=== PATIENT | female | born 1990 | race Caucasian/White ===

== ENCOUNTER 2018-08-28 22:44 | Emergency (ER) | payer MEDICAID ==
[~2018-08-28] VITALS: Ht 167.6 cm; Wt 100.0 kg
[2018-08-28 22:47] VITALS: BP 131/78
--- NOTE | 2018-08-28 22:57 | NUR ---
No approproate RAP specific asssessment- pt reports intermittent numbness to hands over the last "couple of moths." she reports numbness is from wrist to fingers. circulation is intact and she is able to use fingers with fine motor
--- NOTE | 2018-08-28 22:58 | NUR ---
Pt resting quietly in position of comfort using both hands/fingers on cell phone.
== END 2018-08-28 23:24 | disposition home or self-care (01) ==
LOC: ER 22:46
DX: R20.0 Anesthesia of skin (principal); J45.909 Unspecified asthma, uncomplicated; F17.200 Nicotine dependence, unspecified, uncomplicated; Z88.5 Allergy status to narcotic agent
CPT/HCPCS: 99281

== ENCOUNTER 2019-03-11 20:29 | Emergency (ER) | payer MEDICAID ==
[~2019-03-11] VITALS: Ht 167.6 cm; Wt 100.0 kg
[2019-03-11] MEDS ORDERED: ketorolac trometh inj. 60 MG/2 ML VIAL IM ONE (21:50)
[2019-03-11] MEDS ORDERED: orphenadrine citrate 60mg/2ml inj. IM ONE (21:50)
[2019-03-11] MEDS ORDERED: NAPR-56 PO (21:51)
[2019-03-11] MEDS ORDERED: CYCL-1 PO (21:51)
[2019-03-11 22:10] VITALS: BP 120/67
== END 2019-03-11 22:13 | disposition home or self-care (01) ==
LOC: ER 20:31
DX: M54.5 Low back pain (principal); G89.29 Other chronic pain; M62.830 Muscle spasm of back; J45.909 Unspecified asthma, uncomplicated; Z98.890 Other specified postprocedural states; Z88.5 Allergy status to narcotic agent
CPT/HCPCS: 96372; 99283; J1885; J2360

== ENCOUNTER 2019-06-14 23:23 | Emergency (ER) | payer MEDICAID ==
[~2019-06-14] VITALS: Ht 167.6 cm; Wt 109.1 kg
[~2019-06-14 23:23] MED LIST: CYCL-1 PO
[2019-06-14 23:28] VITALS: BP 126/85
[2019-06-14] MEDS ORDERED: TETanus/Pertussis (Acell)/Diphther VAC/PF (Tdap-Adult) 0.5ml syringe IM ONE (23:50)
== END 2019-06-15 00:17 | disposition home or self-care (01) ==
LOC: ER 23:24
DX: S81.812A Laceration without foreign body, left lower leg, initial encounter (principal); J45.909 Unspecified asthma, uncomplicated; F10.99 Alcohol use, unspecified with unspecified alcohol-induced disorder; Z88.5 Allergy status to narcotic agent; Z79.899 Other long term (current) drug therapy; Z98.890 Other specified postprocedural states; W22.8XXA Striking against or struck by other objects, initial encounter; Y93.89 Activity, other specified; Y92.89 Other specified places as the place of occurrence of the external cause; Y99.8 Other external cause status; Y90.9 Presence of alcohol in blood, level not specified
CPT/HCPCS: 90471; 99283

== ENCOUNTER 2020-02-29 02:43 | Inpatient (IN) | payer MEDICAID ==
[~2020-02-29] VITALS: Ht 167.6 cm; Wt 111.0 kg
[2020-02-29] MEDS ORDERED: morphine 4 MG/ML inj SYRINge IV PRN (03:20)
[2020-02-29] MEDS ORDERED: normal saline 1000ML IV soln IVB ONE (03:20)
[2020-02-29] MEDS ORDERED: ondansetron/PF 4mg/2ml inj IV ONE ×2 (03:20→05:00)
[2020-02-29 03:53] LABS: ALANINE AMINOTRANSFERASE 22 U/L (12-78); ALBUMIN 3.6 G/DL (3.4-5.0); ALKALINE PHOSPHATASE 79 IU/L (46-116); ANION GAP 8 (8-16); ASPARTATE AMINO TRANSFERASE 17 U/L (10-37); BILIRUBIN,TOTAL 0.2 MG/DL (0.1-1.0); BLOOD UREA NITROGEN 12 MG/DL (7-18); BUN/CREATININE RATIO 12.9 (6.6-38.0); CHLORIDE 108 MMOL/L (99-107); CREATININE 0.93 MG/DL (0.40-0.90); GLUCOSE 125 MG/DL (70-104); LIPASE 99 U/L (73-393); POTASSIUM 3.7 MMOL/L (3.5-5.1); SODIUM 142 MMOL/L (135-145); TOTAL CARBON DIOXIDE 25.8 MMOL/L (24-32); TOTAL PROTEIN 7.3 G/DL (6.4-8.2); eGFR 72 ML/MIN
[2020-02-29 04:24] LABS: URINE HCG NEGATIVE (NEG)
[2020-02-29 04:40] LABS: CLARITY,URINE SLIGHTLY CLOUDY (Clear); COLOR,URINE YELLOW (Yellow); GLUCOSE, URINE NEGATIVE (Neg); KETONES,URINE NEGATIVE (Neg); LEUKOCYTE ESTERASE ,URINE NEGATIVE (Neg); NITRITES, URINE NEGATIVE (Neg); OCCULT BLOOD,URINE MODERATE (Neg); PH,URINE 6.5 (4.8-8.0); PROTEIN,URINE NEGATIVE (Neg); UROBILINOGEN,URINE 0.2 E.U/dL (0.2-1.0)
[2020-02-29 04:42] LABS: UA COLLECTION TYPE CLN CATCH MIDSTREAM
[2020-02-29 04:48] LABS: MUCUS STRANDS MANY /LPF (Neg); SQUAMOUS EPITHELIAL CELL,UR MANY /LPF (FEW)
[2020-02-29 04:49] LABS: WBC,URINE 0-4 /HPF (0-4)
[2020-02-29 04:51] LABS: AMORPHOUS URATES 3+; BACTERIA,URINE 2+ /HPF (Neg)
[2020-02-29] MEDS ORDERED: diazepam inj 5 MG/ML inj. IV ONE (05:00)
[2020-02-29] MEDS ORDERED: fentaNYL/PF 50MCG/1 ML 2ML syringe IV ONE (05:00)
[2020-02-29] MEDS ORDERED: NO HOME MEDS (05:06)
[2020-02-29] MEDS ORDERED: acetaminophen 325mg tablet PO PRN (05:10)
[2020-02-29] MEDS ORDERED: magnesium Cl slow-release 64mg tablet PO PRN (05:10)
[2020-02-29] MEDS ORDERED: potassium CL 10mEq/100ml bag 100 ML IV PRN ×2 (05:10)
[2020-02-29] MEDS ORDERED: magnesium 4gm in 100ml NS 100 ML IV PRN (05:10)
[2020-02-29] MEDS ORDERED: potassium Cl 20 mEq SR tablet PO PRN ×2 (05:10)
[2020-02-29] MEDS ORDERED: mag hydrox/Alum hydrox/simeth 30ml oral suspension PO PRN (05:10)
[2020-02-29] MEDS ORDERED: diazepam inj 5 MG/ML inj. IV PRN (05:10)
[2020-02-29] MEDS ORDERED: proCHLORperazine 10 MG/2 ml inj IV PRN (05:10)
[2020-02-29] MEDS ORDERED: magnesium hydroxide 30ml (MOM) UD suspension PO PRN (05:10)
[2020-02-29] MEDS ORDERED: magnesium 2GM in 50ml NS 50 ML IV PRN (05:10)
[2020-02-29] MEDS ORDERED: ondansetron/PF 4mg/2ml inj IV PRN (05:10)
--- NOTE | 2020-02-29 05:26 | NUR ---
2ND CALL FOR DR. AVERY AT 05:25
--- NOTE | 2020-02-29 05:49 | NUR ---
3RD CALL FOR DR. AVERY AT 05:45
[2020-02-29 06:26] LABS: BASOPHILS % (AUTO) 0.3 % (0-1); EOSINOPHILS % (AUTO) 0.1 % (0-6); HEMATOCRIT 37.3 % (35.0-45.0); HEMOGLOBIN 12.6 g/dl (12.0-16.0); LYMPHOCYTES % (AUTO) 7.8 % (21-51); MEAN CORPUSCULAR HEMOGLOBIN 30.1 PG (27.0-31.0); MEAN CORPUSCULAR HGB CONC 33.9 g/dL (33.0-36.5); MEAN CORPUSCULAR VOLUME 88.7 FL (78-98); MEAN PLATELET VOLUME 8.5 FL (7.4-10.4); MONOCYTES # (AUTO) 0.4 X10'3 (0-0.9); MONOCYTES % (AUTO) 3.2 % (2-12); NEUTROPHILS # (AUTO) 11.4 X10'3 (1.8-7.7); NEUTROPHILS % (AUTO) 88.6 % (42-75); PLATELET COUNT 241 X10'3 (140-440); RED CELL DISTRIBUTION WIDTH 12.8 % (11.5-14.5); WHITE BLOOD COUNT 12.8 X10'3 (4.5-11.0)
--- NOTE | 2020-02-29 06:48 | NUR ---
Patient in room ED 4. I have received report from Leanna and had the opportunity to ask questions and assume patient care.
--- NOTE | 2020-02-29 06:58 | NUR ---
Pt arrived on the floor, tucked in, pt vomiting
[2020-02-29] MEDS: normal saline 1000ml 1,000 ML IV SCH ×2 (07:05→17:26)
[2020-02-29 07:10] VITALS: BP 128/87
[2020-02-29] MEDS: K and/or MAG REPLACEMENT MC SCH ×2 (08:00→20:00)
[2020-02-29 10:00] VITALS: BP 101/68
[2020-02-29] MEDS: HYDROmorphone 1 mg/ml syringe IV PRN ×3 (10:08→20:04)
[2020-02-29] MEDS ORDERED: tamsulosin 0.4mg capsule PO ONE (14:00)
--- NOTE | 2020-02-29 15:39 | NUR ---
Patient S/O called requesting to talk with her so he could get the ETB card from her, to feed the kids. I woke patient, and asked his name "Vish" and she then gave me the ETB card to run downstairs to him. I went downstairs, and he was on the blanking machine operator phone talking with her, I asked his name and he stated "Vish".
[2020-02-29 18:00] VITALS: BP 95/56
--- NOTE | 2020-02-29 18:00 | NUR ---
Patient in room ORTHO 4022. I have received report from Michelle JOHNSON and had the opportunity to ask questions and assume patient care.
--- NOTE | 2020-02-29 18:26 | NUR ---
Problems reprioritized. Patient report given, questions answered & plan of care reviewed with
[2020-02-29] MEDS: tamsulosin 0.4mg capsule PO SCH (20:04)
[2020-02-29 22:00] VITALS: BP 98/57
[2020-03-01] VITALS (15 sets, daily range): BP systolic 98–150; BP diastolic 57–86
[2020-03-01] MEDS: normal saline 1000ml 1,000 ML IV SCH ×3 (02:20→22:20)
[2020-03-01] MEDS: HYDROmorphone 1 mg/ml syringe IV PRN ×3 (03:49→18:57)
[2020-03-01 06:34] LABS: ALANINE AMINOTRANSFERASE 19 U/L (12-78); ALBUMIN 2.8 G/DL (3.4-5.0); ALBUMIN/GLOBULIN RATIO 0.9 (1.1-1.5); ALKALINE PHOSPHATASE 66 IU/L (46-116); ANION GAP 8 (8-16); ASPARTATE AMINO TRANSFERASE 12 U/L (10-37); BILIRUBIN,TOTAL 0.4 MG/DL (0.1-1.0); BLOOD UREA NITROGEN 8 MG/DL (7-18); BUN/CREATININE RATIO 10.8 (6.6-38.0); CALCIUM 8.2 MG/DL (8.5-10.1); CHLORIDE 109 MMOL/L (99-107); CREATININE 0.74 MG/DL (0.40-0.90); GLUCOSE 96 MG/DL (70-104); MAGNESIUM 1.9 MG/DL (1.5-2.4); POTASSIUM 3.7 MMOL/L (3.5-5.1); SODIUM 142 MMOL/L (135-145); TOTAL CARBON DIOXIDE 25.3 MMOL/L (24-32); eGFR > 90 ML/MIN
[2020-03-01 06:45] LABS: BASOPHILS % (AUTO) 0.3 % (0-1); EOSINOPHILS # (AUTO) 0.1 X10'3 (0-0.9); EOSINOPHILS % (AUTO) 1.9 % (0-6); HEMATOCRIT 37.8 % (35.0-45.0); HEMOGLOBIN 12.6 g/dl (12.0-16.0); LYMPHOCYTES # (AUTO) 2.6 X10'3 (1.1-4.8); LYMPHOCYTES % (AUTO) 32.2 % (21-51); MEAN CORPUSCULAR HEMOGLOBIN 29.8 PG (27.0-31.0); MEAN CORPUSCULAR HGB CONC 33.3 g/dL (33.0-36.5); MEAN CORPUSCULAR VOLUME 89.4 FL (78-98); MEAN PLATELET VOLUME 8.8 FL (7.4-10.4); MONOCYTES # (AUTO) 0.5 X10'3 (0-0.9); MONOCYTES % (AUTO) 6.1 % (2-12); NEUTROPHILS # (AUTO) 4.7 X10'3 (1.8-7.7); NEUTROPHILS % (AUTO) 59.5 % (42-75); PLATELET COUNT 232 X10'3 (140-440); RED BLOOD COUNT 4.23 X10'6 (4.20-5.60)
--- NOTE | 2020-03-01 06:47 | NUR ---
Patient in room ORTHO 4022B. I have received report from ALEX Hansen and had the opportunity to ask questions and assume patient care.
[2020-03-01] MEDS: K and/or MAG REPLACEMENT MC SCH ×2 (07:40→19:03)
[2020-03-01] MEDS ORDERED: HYDR-4383 PO (09:51)
--- NOTE | 2020-03-01 10:09 | NUR ---
Page Sent PAGER ID: [phone] MESSAGE: [place] 5430-RE: MARLYS COCHRAN [id number]...DR AVERY IS TAKING PT TO SURGERY THIS AFTERNOON
[2020-03-01] MEDS: HYDROcodone/acetaminophen 5mg/325mg tablet PO PRN ×2 (11:06→23:10)
--- NOTE | 2020-03-01 18:11 | NUR ---
Problems reprioritized. Patient report given, questions answered & plan of care reviewed with ALEX Brown.
[2020-03-01] MEDS ORDERED: iohexol 300 MG/1 ML 50ml polymer ONE (19:43)
--- NOTE | 2020-03-01 20:10 | NUR ---
CALLED REPORT TO ALEX RANDOLPH IN OR. PT LEFT THE FLOOR VIA HOSPITAL BED AND ONE ATTENDANT.
[2020-03-01] MEDS ORDERED: ringers solution, lacted 1,000 ML IV SCH (20:42)
[2020-03-01] MEDS ORDERED: meperidine/PF 25mg/ml syringe IV PRN ×2 (20:45)
[2020-03-01] MEDS ORDERED: ondansetron/PF 4mg/2ml inj IV PRN (20:45)
[2020-03-01] MEDS ORDERED: HYDROmorphone inj. 0.5 MG/0.5 ML DISP.SYRIN IV PRN ×2 (20:45)
[2020-03-01] MEDS ORDERED: sevoflurane 250ml liquid IH ONE (20:48)
[2020-03-01] MEDS ORDERED: midazolam 2 mg/2 ml injection ONE (20:51)
[2020-03-01] MEDS ORDERED: fentaNYL/PF 50MCG/1 ML 2ML syringe ONE (20:51)
[2020-03-01] MEDS ORDERED: propofol inj 20 ML IV ONE (20:51)
[2020-03-01] MEDS ORDERED: ceFAZolin 1000mg inj ONE ×2 (20:51)
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
[2020-03-01] MEDS: tamsulosin 0.4mg capsule PO SCH (23:03)
[2020-03-02 00:25] VITALS: BP 102/80
[2020-03-02 00:55] VITALS: BP 114/78
[2020-03-02 01:55] VITALS: BP 123/70
[2020-03-02 02:21] VITALS: BP 119/83
[2020-03-02] MEDS: HYDROmorphone 1 mg/ml syringe IV PRN (05:37)
--- NOTE | 2020-03-02 05:56 | NUR ---
REPORT GIVEN TO ALEX COLEMAN.
[2020-03-02 06:00] VITALS: BP 106/62
--- NOTE | 2020-03-02 06:43 | NUR ---
Patient in room ORTHO 4022A. I have received report from ALEX Brown and had the opportunity to ask questions and assume patient care.
[2020-03-02 07:22] LABS: BASOPHILS % (AUTO) 0.6 % (0-1); EOSINOPHILS # (AUTO) 0.2 X10'3 (0-0.9); EOSINOPHILS % (AUTO) 2.5 % (0-6); HEMATOCRIT 37.6 % (35.0-45.0); HEMOGLOBIN 12.6 g/dl (12.0-16.0); LYMPHOCYTES # (AUTO) 2.6 X10'3 (1.1-4.8); MEAN CORPUSCULAR HEMOGLOBIN 29.7 PG (27.0-31.0); MEAN CORPUSCULAR HGB CONC 33.4 g/dL (33.0-36.5); MEAN PLATELET VOLUME 9.6 FL (7.4-10.4); MONOCYTES # (AUTO) 0.5 X10'3 (0-0.9); MONOCYTES % (AUTO) 6.3 % (2-12); NEUTROPHILS # (AUTO) 4.5 X10'3 (1.8-7.7); NEUTROPHILS % (AUTO) 57.6 % (42-75); PLATELET COUNT 234 X10'3 (140-440); RED BLOOD COUNT 4.23 X10'6 (4.20-5.60); RED CELL DISTRIBUTION WIDTH 12.8 % (11.5-14.5); WHITE BLOOD COUNT 7.8 X10'3 (4.5-11.0)
[2020-03-02 07:36] LABS: ALANINE AMINOTRANSFERASE 16 U/L (12-78); ALBUMIN 2.8 G/DL (3.4-5.0); ALBUMIN/GLOBULIN RATIO 0.8 (1.1-1.5); ALKALINE PHOSPHATASE 68 IU/L (46-116); ANION GAP 7 (8-16); ASPARTATE AMINO TRANSFERASE 18 U/L (10-37); BILIRUBIN,TOTAL 0.2 MG/DL (0.1-1.0); BLOOD UREA NITROGEN 7 MG/DL (7-18); CALCIUM 8.2 MG/DL (8.5-10.1); CHLORIDE 108 MMOL/L (99-107); CREATININE 0.78 MG/DL (0.40-0.90); GLUCOSE 88 MG/DL (70-104); MAGNESIUM 1.7 MG/DL (1.5-2.4); POTASSIUM 3.7 MMOL/L (3.5-5.1); SODIUM 142 MMOL/L (135-145); TOTAL CARBON DIOXIDE 26.6 MMOL/L (24-32); TOTAL PROTEIN 6.1 G/DL (6.4-8.2); eGFR 88 ML/MIN
[2020-03-02] MEDS: K and/or MAG REPLACEMENT MC SCH (08:00)
[2020-03-02] MEDS: normal saline 1000ml 1,000 ML IV SCH (08:20)
[2020-03-02] MEDS: HYDROcodone/acetaminophen 5mg/325mg tablet PO PRN (09:43)
[2020-03-02] MEDS ORDERED: SULF1TAB49 PO (10:27)
--- NOTE | 2020-03-02 11:18 | NUR ---
DC INSTRUCTIONS, RX, AND WORK RELEASE NOTE GIVEN TO PT. IV REMOVED WITH NO COMPLICATIONS. PT DRESSED SELF. WHEELED DOWN TO FAMILY IN PRIVATE VEHICLE IN STABLE CONDITION.
== END 2020-03-02 10:55 | disposition home or self-care (01) | DRG 446 ==
LOC: ER 02:43 → UNDOADMIN 05:06 → ED HOLD 05:06 → ORTHO 4S 06:54 → ED HOLD 06:54 → PACU 03-01 19:57 → ORTHO 4S 03-01 19:57 → PACU 03-01 23:00 → ORTHO 4S 03-01 23:00
PROVIDERS: ADMIT Family Medicine; ATTEND Internal Medicine
PROC: 0T768DZ Dilation of Right Ureter with Intraluminal Device, Via Natural or Artificial Opening Endoscopic (ICD-10-PCS; 2020-03-01)
PROC: BT1D1ZZ Fluoroscopy of Right Kidney, Ureter and Bladder using Low Osmolar Contrast (ICD-10-PCS; 2020-03-01)
PROC: 0TC68ZZ Extirpation of Matter from Right Ureter, Via Natural or Artificial Opening Endoscopic (ICD-10-PCS; principal; 2020-03-01 20:48)
DX: N13.2 Hydronephrosis with renal and ureteral calculous obstruction (principal); E66.01 Morbid (severe) obesity due to excess calories; J45.909 Unspecified asthma, uncomplicated; Z98.891 History of uterine scar from previous surgery; Z68.39 Body mass index [BMI] 39.0-39.9, adult; Z88.5 Allergy status to narcotic agent
CPT/HCPCS: 36415; 74018; 74176; 74420; 80053; 81001; 81025; 82948; 83690; 83735; 85025; 87081; 99285; A4402; A4618; A7000; C1758; C1769; C2617; G0378; J0690; J0780; J1170; J2250; J2270; J2405; J2704; J3010; J3360; J7030; Q9967

== ENCOUNTER 2020-03-07 13:22 | Emergency (ER) | payer MEDICAID ==
[~2020-03-07] VITALS: Ht 167.6 cm; Wt 113.6 kg
[~2020-03-07 13:22] MED LIST changes: -CYCL-1 PO; +HYDR-4383 PO; +SULF1TAB49 PO
--- NOTE | 2020-03-07 13:55 | NUR ---
awaiting for ed .
[2020-03-07 14:23] LABS: CLARITY,URINE SLIGHTLY CLOUDY (Clear); COLOR,URINE AMBER (Yellow); GLUCOSE, URINE NEGATIVE (Neg); KETONES,URINE NEGATIVE (Neg); LEUKOCYTE ESTERASE ,URINE SMALL (Neg); NITRITES, URINE NEGATIVE (Neg); OCCULT BLOOD,URINE LARGE (Neg); PH,URINE 6.5 (4.8-8.0); PROTEIN,URINE >=300 mg/dl (Neg); UA COLLECTION TYPE CLN CATCH MIDSTREAM; URINE HCG NEGATIVE (NEG)
[2020-03-07 14:31] LABS: RBC,URINE TNTC /HPF (0-2); WBC,URINE 30-50 /HPF (0-4)
[2020-03-07 14:33] LABS: BACTERIA,URINE 2+ /HPF (Neg)
[2020-03-07 14:35] LABS: SQUAMOUS EPITHELIAL CELL,UR MANY /LPF (FEW)
[2020-03-07] MEDS ORDERED: ondansetron/PF 4mg/2ml inj IV ONE (14:40)
[2020-03-07] MEDS ORDERED: normal saline 1000ML IV soln IVB ONE (14:40)
[2020-03-07] MEDS ORDERED: ketorolac trometh. 30mg/ml inj. IV ONE (14:40)
[2020-03-07] MEDS ORDERED: fentaNYL/PF 50MCG/1 ML 2ML syringe IV ONE ×2 (14:45→15:30)
[2020-03-07 14:48] LABS: BASOPHILS # (AUTO) 0.1 X10'3 (0-0.2); BASOPHILS % (AUTO) 0.6 % (0-1); EOSINOPHILS # (AUTO) 0.2 X10'3 (0-0.9); EOSINOPHILS % (AUTO) 2.4 % (0-6); HEMATOCRIT 41.9 % (35.0-45.0); HEMOGLOBIN 14.1 g/dl (12.0-16.0); LYMPHOCYTES # (AUTO) 2.5 X10'3 (1.1-4.8); LYMPHOCYTES % (AUTO) 28.5 % (21-51); MEAN CORPUSCULAR HEMOGLOBIN 29.9 PG (27.0-31.0); MEAN CORPUSCULAR HGB CONC 33.7 g/dL (33.0-36.5); MEAN CORPUSCULAR VOLUME 88.8 FL (78-98); MEAN PLATELET VOLUME 9.1 FL (7.4-10.4); MONOCYTES # (AUTO) 0.6 X10'3 (0-0.9); MONOCYTES % (AUTO) 6.5 % (2-12); NEUTROPHILS # (AUTO) 5.4 X10'3 (1.8-7.7); PLATELET COUNT 315 X10'3 (140-440); RED BLOOD COUNT 4.72 X10'6 (4.20-5.60); RED CELL DISTRIBUTION WIDTH 13.1 % (11.5-14.5); WHITE BLOOD COUNT 8.7 X10'3 (4.5-11.0)
[2020-03-07 14:56] LABS: ALANINE AMINOTRANSFERASE 24 U/L (12-78); ALBUMIN 4.2 G/DL (3.4-5.0); ALBUMIN/GLOBULIN RATIO 1.1 (1.1-1.5); ALKALINE PHOSPHATASE 86 IU/L (46-116); ANION GAP 5 (8-16); ASPARTATE AMINO TRANSFERASE 16 U/L (10-37); BILIRUBIN,TOTAL 0.3 MG/DL (0.1-1.0); BLOOD UREA NITROGEN 11 MG/DL (7-18); BUN/CREATININE RATIO 12.5 (6.6-38.0); CALCIUM 9.4 MG/DL (8.5-10.1); CHLORIDE 107 MMOL/L (99-107); CREATININE 0.88 MG/DL (0.40-0.90); GLUCOSE 90 MG/DL (70-104); LIPASE 88 U/L (73-393); POTASSIUM 3.7 MMOL/L (3.5-5.1); SODIUM 139 MMOL/L (135-145); TOTAL CARBON DIOXIDE 27.2 MMOL/L (24-32); TOTAL PROTEIN 8.1 G/DL (6.4-8.2); eGFR 77 ML/MIN
[2020-03-07] MEDS ORDERED: CefTRIAXone/D5W-Rocephin 1gm 50 ML IV ONE (15:15)
--- NOTE | 2020-03-07 15:17 | NUR ---
ernestinahin unavailable at this time,called pharamacy,will take them 10 minutes to make it.
[2020-03-07 15:56] VITALS: BP 112/69
[2020-03-07] MEDS ORDERED: CEPH500C5 PO (16:17)
[2020-03-07] MEDS ORDERED: HYDR-4384 PO (16:17)
== END 2020-03-07 16:28 | disposition home or self-care (01) ==
LOC: ER 13:23
DX: R10.31 Right lower quadrant pain (principal); J45.909 Unspecified asthma, uncomplicated; F17.200 Nicotine dependence, unspecified, uncomplicated; Z87.442 Personal history of urinary calculi; Z98.890 Other specified postprocedural states; Z72.89 Other problems related to lifestyle; Z88.5 Allergy status to narcotic agent; Z79.2 Long term (current) use of antibiotics; Z79.899 Other long term (current) drug therapy
CPT/HCPCS: 36415; 80053; 81001; 81025; 83690; 85025; 96365; 96375; 96376; 99284; J0696; J1885; J2405; J3010; J7030

== ENCOUNTER 2020-04-04 17:44 | Emergency (ER) | payer MEDICAID ==
[~2020-04-04] VITALS: Ht 167.6 cm; Wt 111.8 kg
[~2020-04-04 17:44] MED LIST changes: -SULF1TAB49 PO
[2020-04-04 17:50] VITALS: BP 127/84
[2020-04-04] MEDS ORDERED: CEPH250T PO (19:09)
[2020-04-04] MEDS ORDERED: tetanus & diphtheria toxoid (Td) vaccine 0.5ml IMVAC ONE (19:20)
[2020-04-04] MEDS ORDERED: TETanus/Pertussis (Acell)/Diphther VAC/PF (Tdap-Adult) 0.5ml syringe IMVAC ONE (19:25)
== END 2020-04-04 19:38 | disposition home or self-care (01) ==
LOC: ER 17:45
DX: S50.311A Abrasion of right elbow, initial encounter (principal); S60.511A Abrasion of right hand, initial encounter; M79.604 Pain in right leg; J45.909 Unspecified asthma, uncomplicated; Z88.5 Allergy status to narcotic agent; Z79.2 Long term (current) use of antibiotics; Z79.899 Other long term (current) drug therapy; W05.1XXA Fall from non-moving nonmotorized scooter, initial encounter; Y93.89 Activity, other specified; Y92.410 Unspecified street and highway as the place of occurrence of the external cause; Y99.8 Other external cause status
CPT/HCPCS: 73130; 90471; 90715; 99283

== ENCOUNTER 2020-07-08 17:07 | Emergency (ER) | payer MEDICAID ==
[~2020-07-08] VITALS: Ht 167.6 cm; Wt 118.2 kg
[2020-07-08 17:12] VITALS: BP 155/100
== END 2020-07-08 17:39 | disposition home or self-care (01) ==
LOC: ER 17:08
DX: J02.9 Acute pharyngitis, unspecified (principal); R43.8 Other disturbances of smell and taste; R05 Cough; R06.7 Sneezing; Z20.828 Contact with and (suspected) exposure to other viral communicable diseases; J45.909 Unspecified asthma, uncomplicated; F17.200 Nicotine dependence, unspecified, uncomplicated; Z87.442 Personal history of urinary calculi; Z98.890 Other specified postprocedural states; Z72.89 Other problems related to lifestyle; Z88.5 Allergy status to narcotic agent; Z79.899 Other long term (current) drug therapy
CPT/HCPCS: 36415; 87635; 99283

== ENCOUNTER 2020-09-16 20:03 | Emergency (ER) | payer MEDICAID ==
[~2020-09-16] VITALS: Ht 167.6 cm; Wt 120.5 kg
[2020-09-16 20:26] LABS: BASOPHILS % (AUTO) 0.4 % (0-1); EOSINOPHILS # (AUTO) 0.4 X10'3 (0-0.9); EOSINOPHILS % (AUTO) 3.8 % (0-6); HEMOGLOBIN 13.8 g/dl (12.0-16.0); LYMPHOCYTES # (AUTO) 3.3 X10'3 (1.1-4.8); LYMPHOCYTES % (AUTO) 31.9 % (21-51); MEAN CORPUSCULAR HGB CONC 33.7 g/dL (33.0-36.5); MEAN PLATELET VOLUME 8.6 FL (7.4-10.4); MONOCYTES # (AUTO) 0.5 X10'3 (0-0.9); MONOCYTES % (AUTO) 5.2 % (2-12); NEUTROPHILS % (AUTO) 58.7 % (42-75); PLATELET COUNT 309 X10'3 (140-440); RED BLOOD COUNT 4.77 X10'6 (4.20-5.60); RED CELL DISTRIBUTION WIDTH 13.8 % (11.5-14.5); WHITE BLOOD COUNT 10.2 X10'3 (4.5-11.0)
[2020-09-16] MEDS: ondansetron/PF 4mg/2ml inj IV ONE (20:36)
[2020-09-16] MEDS: normal saline 1000ML IV soln IVB ONE (20:37)
[2020-09-16] MEDS: ketorolac trometh. 30mg/ml inj. IV ONE (20:37)
[2020-09-16 20:40] LABS: ALANINE AMINOTRANSFERASE 22 U/L (12-78); ALBUMIN 3.9 G/DL (3.4-5.0); ALKALINE PHOSPHATASE 91 IU/L (46-116); ANION GAP 5 (8-16); ASPARTATE AMINO TRANSFERASE 11 U/L (10-37); BILIRUBIN,TOTAL 0.2 MG/DL (0.1-1.0); BLOOD UREA NITROGEN 13 MG/DL (7-18); BUN/CREATININE RATIO 18.6 (6.6-38.0); CALCIUM 8.9 MG/DL (8.5-10.1); CHLORIDE 103 MMOL/L (99-107); GLUCOSE 108 MG/DL (70-104); POTASSIUM 3.6 MMOL/L (3.5-5.1); SODIUM 139 MMOL/L (135-145); TOTAL CARBON DIOXIDE 30.7 MMOL/L (24-32); TOTAL PROTEIN 7.9 G/DL (6.4-8.2); eGFR > 90 ML/MIN
[2020-09-16 20:47] LABS: CLARITY,URINE CLEAR (Clear); COLOR,URINE YELLOW (Yellow); GLUCOSE, URINE NEGATIVE (Neg); KETONES,URINE NEGATIVE (Neg); LEUKOCYTE ESTERASE ,URINE NEGATIVE (Neg); NITRITES, URINE NEGATIVE (Neg); OCCULT BLOOD,URINE SMALL (Neg); PROTEIN,URINE NEGATIVE (Neg); UA COLLECTION TYPE CLN CATCH MIDSTREAM
[2020-09-16 20:48] LABS: URINE HCG NEGATIVE (NEG)
[2020-09-16 20:56] LABS: BACTERIA,URINE 2+ /HPF (Neg); RBC,URINE 0-2 /HPF (0-2); SQUAMOUS EPITHELIAL CELL,UR MODERATE /LPF (FEW); WBC,URINE 0-4 /HPF (0-4)
[2020-09-16] MEDS ORDERED: HYDR-3965 PO (21:03)
[2020-09-16] MEDS ORDERED: NAPR-56 PO (21:03)
[2020-09-16] MEDS: HYDROcodone/acetaminophen 5mg/325mg tablet PO ONE (21:11)
[2020-09-16 21:22] VITALS: BP 126/84
== END 2020-09-16 21:48 | disposition home or self-care (01) ==
LOC: ER 20:04
DX: N23 Unspecified renal colic (principal); J45.909 Unspecified asthma, uncomplicated; F17.200 Nicotine dependence, unspecified, uncomplicated; Z87.442 Personal history of urinary calculi; Z88.6 Allergy status to analgesic agent; Z79.899 Other long term (current) drug therapy
CPT/HCPCS: 36415; 80053; 81001; 81025; 85025; 96361; 96374; 96375; 99284; J1885; J2405; J7030

== ENCOUNTER 2021-01-20 17:54 | Emergency (ER) | payer MEDICAID ==
[~2021-01-20] VITALS: Ht 167.6 cm; Wt 122.0 kg
[2021-01-20 17:55] VITALS: BP 112/69
--- NOTE | 2021-01-20 18:26 | NUR ---
PT C/O LOW BACK PAIN, NON RADIATING, NO LOSS OF BOWEL OR BLADDER. APPEARS UNCOMFORTABLE, GCS 15
[2021-01-20] MEDS ORDERED: HYDR-3965 PO (18:58)
[2021-01-20] MEDS ORDERED: CYCL-1 PO (18:58)
[2021-01-20] MEDS ORDERED: NAPR-56 PO (18:58)
[2021-01-20] MEDS ORDERED: dexamethasone sod phosphate 10mg/ml inj PO STA (19:01)
[2021-01-20] MEDS ORDERED: ketorolac trometh inj. 60 MG/2 ML VIAL IM ONE (19:05)
[2021-01-20] MEDS ORDERED: HYDROcodone/acetaminophen 10/325mg tab PO ONE (19:05)
[2021-01-20] MEDS ORDERED: orphenadrine citrate 60mg/2ml inj. IM ONE (19:05)
== END 2021-01-20 19:34 | disposition home or self-care (01) ==
LOC: ER 17:54
DX: S39.012A Strain of muscle, fascia and tendon of lower back, initial encounter (principal); M62.838 Other muscle spasm; M54.5 Low back pain; J45.909 Unspecified asthma, uncomplicated; Z87.442 Personal history of urinary calculi; Z98.890 Other specified postprocedural states; Z88.5 Allergy status to narcotic agent; Z79.899 Other long term (current) drug therapy; W19.XXXA Unspecified fall, initial encounter; Y93.89 Activity, other specified; Y92.89 Other specified places as the place of occurrence of the external cause; Y99.8 Other external cause status
CPT/HCPCS: 96372; 99284; J1100; J1885; J2360

== ENCOUNTER 2021-02-21 18:23 | Emergency (ER) | payer MEDICAID ==
[~2021-02-21] VITALS: Ht 167.6 cm; Wt 122.7 kg
[~2021-02-21 18:23] MED LIST changes: +CYCL-1 PO; +HYDR-3965 PO
[2021-02-21 18:36] VITALS: BP 126/86
[2021-02-21 19:50] LABS: URINE HCG NEGATIVE (NEG)
[2021-02-21 19:54] LABS: CLARITY,URINE SLIGHTLY CLOUDY (Clear); COLOR,URINE YELLOW (Yellow); GLUCOSE, URINE NEGATIVE (Neg); KETONES,URINE TRACE mg/dl (Neg); LEUKOCYTE ESTERASE ,URINE NEGATIVE (Neg); NITRITES, URINE NEGATIVE (Neg); OCCULT BLOOD,URINE LARGE (Neg); PH,URINE 6.5 (4.8-8.0); PROTEIN,URINE 30 mg/dl (Neg)
[2021-02-21 20:02] LABS: UA COLLECTION TYPE CLN CATCH MIDSTREAM
[2021-02-21 20:03] LABS: BACTERIA,URINE FEW /HPF (Neg); RBC,URINE 50-100 /HPF (0-2); SQUAMOUS EPITHELIAL CELL,UR FEW /LPF (FEW); WBC,URINE 0-4 /HPF (0-4)
--- NOTE | 2021-02-21 20:13 | NUR ---
PT C/O RLQ ABD PAIN, CONSTANT, 8-9/10, +N/V X3 DAYS, LMP END OF LAST MONTH, H/O OVARIAN CYSTS "THIS PAIN FEELS DIFFERENT", NO VAGINAL DISCHARGE/BLEEDING, PT IS WAITING TO BE EVALUATED BY PROVIDER
[2021-02-21 20:16] LABS: BASOPHILS % (AUTO) 0.4 % (0-1); EOSINOPHILS # (AUTO) 0.1 X10'3 (0-0.9); EOSINOPHILS % (AUTO) 0.9 % (0-6); LYMPHOCYTES # (AUTO) 2.1 X10'3 (1.1-4.8); LYMPHOCYTES % (AUTO) 19.2 % (21-51); MEAN CORPUSCULAR HEMOGLOBIN 30.3 PG (27.0-31.0); MEAN CORPUSCULAR HGB CONC 34.9 g/dL (33.0-36.5); MEAN CORPUSCULAR VOLUME 86.9 FL (78-98); MEAN PLATELET VOLUME 7.9 FL (7.4-10.4); MONOCYTES # (AUTO) 0.5 X10'3 (0-0.9); MONOCYTES % (AUTO) 4.8 % (2-12); NEUTROPHILS # (AUTO) 8.2 X10'3 (1.8-7.7); NEUTROPHILS % (AUTO) 74.7 % (42-75); PLATELET COUNT 339 X10'3 (140-440); RED CELL DISTRIBUTION WIDTH 13.6 % (11.5-14.5); WHITE BLOOD COUNT 10.9 X10'3 (4.5-11.0)
[2021-02-21 20:26] LABS: ALANINE AMINOTRANSFERASE 21 U/L (12-78); ALBUMIN 3.9 G/DL (3.4-5.0); ALKALINE PHOSPHATASE 93 IU/L (46-116); ANION GAP 8 (8-16); ASPARTATE AMINO TRANSFERASE 16 U/L (10-37); BILIRUBIN,TOTAL 0.4 MG/DL (0.1-1.0); BLOOD UREA NITROGEN 13 MG/DL (7-18); BUN/CREATININE RATIO 18.1 (6.6-38.0); CALCIUM 9.1 MG/DL (8.5-10.1); CHLORIDE 106 MMOL/L (99-107); CREATININE 0.72 MG/DL (0.40-0.90); GLUCOSE 93 MG/DL (70-104); LIPASE 83 U/L (73-393); POTASSIUM 3.8 MMOL/L (3.5-5.1); SODIUM 142 MMOL/L (135-145); TOTAL CARBON DIOXIDE 28.1 MMOL/L (24-32); TOTAL PROTEIN 7.8 G/DL (6.4-8.2); eGFR > 90 ML/MIN
--- NOTE | 2021-02-21 21:44 | NUR ---
point of care technician has been paged
--- NOTE | 2021-02-21 22:05 | NUR ---
nuclear medical tech at bedside
[2021-02-21] MEDS ORDERED: ondansetron 4mg rapidly disintigrating tab PO ONE (22:40)
[2021-02-21] MEDS ORDERED: ONDA4TAB12 PO (22:43)
== END 2021-02-21 23:40 | disposition home or self-care (01) ==
LOC: ER 18:23
DX: R10.31 Right lower quadrant pain (principal); R11.2 Nausea with vomiting, unspecified; J45.909 Unspecified asthma, uncomplicated; Z87.442 Personal history of urinary calculi; Z98.890 Other specified postprocedural states; Z88.5 Allergy status to narcotic agent; Z79.899 Other long term (current) drug therapy
CPT/HCPCS: 36415; 76856; 80053; 81001; 81025; 83690; 85025; 93976; 99284

== ENCOUNTER 2021-03-04 01:03 | Emergency (ER) | payer MEDICAID ==
[~2021-03-04] VITALS: Ht 172.7 cm; Wt 1.2 kg
[~2021-03-04 01:03] MED LIST changes: -HYDR-3965 PO; +ONDA4TAB12 PO
--- NOTE | 2021-03-04 02:24 | NUR ---
PT HAS BEEN TEXTING ON HER PHONE AND ABLE TO REMAIN AWAKE SINCE ARRIVING IN ER - SHE IS CURRENTLY IN A WHEELCHAIR IN THE HALLWAY AWAITING A ROOM
[2021-03-04 03:22] VITALS: BP 127/79
== END 2021-03-04 03:32 | disposition home or self-care (01) ==
LOC: ER 01:03
DX: F10.129 Alcohol abuse with intoxication, unspecified (principal); R51.9 Headache, unspecified; J45.909 Unspecified asthma, uncomplicated; Z87.442 Personal history of urinary calculi; Z98.890 Other specified postprocedural states; Z88.5 Allergy status to narcotic agent; Z79.899 Other long term (current) drug therapy; Y90.9 Presence of alcohol in blood, level not specified
CPT/HCPCS: 99284

== ENCOUNTER 2021-03-15 01:57 | Emergency (ER) | payer MEDICAID ==
[~2021-03-15] VITALS: Ht 167.6 cm; Wt 122.7 kg
[2021-03-15 02:04] VITALS: BP 132/89
== END 2021-03-15 03:32 | disposition left against medical advice (07) ==
LOC: ER 01:59
DX: R09.89 Other specified symptoms and signs involving the circulatory and respiratory systems (principal); Z53.21 Procedure and treatment not carried out due to patient leaving prior to being seen by health care provider

== ENCOUNTER → 2021-03-17 | Emergency (ER) | payer MEDICAID ==
[~2021-03-17] VITALS: Ht 167.6 cm; Wt 120.0 kg
[2021-03-17 01:06] VITALS: BP 130/93
== END | disposition left against medical advice (07) ==
LOC: ER 01:04
DX: A64 Unspecified sexually transmitted disease (principal); Z53.21 Procedure and treatment not carried out due to patient leaving prior to being seen by health care provider

== ENCOUNTER 2021-04-15 18:03 | Emergency (ER) | payer MEDICAID ==
[~2021-04-15] VITALS: Ht 167.6 cm; Wt 122.7 kg
[2021-04-15 20:30] VITALS: BP 122/84
== END 2021-04-15 20:31 | disposition home or self-care (01) ==
LOC: ER 18:04
DX: J06.9 Acute upper respiratory infection, unspecified (principal); Z20.822 Contact with and (suspected) exposure to COVID-19; R05 Cough; R43.8 Other disturbances of smell and taste; R50.9 Fever, unspecified; R53.83 Other fatigue; R42 Dizziness and giddiness; J45.909 Unspecified asthma, uncomplicated; F17.200 Nicotine dependence, unspecified, uncomplicated; Z87.442 Personal history of urinary calculi; Z98.890 Other specified postprocedural states; Z88.5 Allergy status to narcotic agent; Z79.899 Other long term (current) drug therapy
CPT/HCPCS: 87635; 99283; C9803

== ENCOUNTER 2021-04-18 00:16 | Emergency (ER) | payer MEDICAID | END 2021-04-18 01:05 | disposition left against medical advice (07) | LOC: ER 00:17 | DX: Z53.21 Procedure and treatment not carried out due to patient leaving prior to being seen by health care provider (principal) ==

== ENCOUNTER 2021-05-07 00:16 | Emergency (ER) | payer MEDICAID ==
[~2021-05-07] VITALS: Ht 167.6 cm; Wt 119.5 kg
[2021-05-07 01:45] LABS: URINE HCG NEGATIVE (NEG)
[2021-05-07] MEDS ORDERED: normal saline 1000ML IV soln IVB ONE (02:25)
[2021-05-07] MEDS ORDERED: ketorolac trometh. 30mg/ml inj. IV ONE (02:25)
[2021-05-07] MEDS ORDERED: ondansetron/PF 4mg/2ml inj IV ONE (02:25)
[2021-05-07 02:37] LABS: CLARITY,URINE CLEAR (Clear); COLOR,URINE YELLOW (Yellow); UA COLLECTION TYPE CLN CATCH MIDSTREAM
[2021-05-07 02:38] LABS: GLUCOSE, URINE NEGATIVE (Neg); KETONES,URINE NEGATIVE (Neg); LEUKOCYTE ESTERASE ,URINE NEGATIVE (Neg); NITRITES, URINE NEGATIVE (Neg); OCCULT BLOOD,URINE NEGATIVE (Neg); PROTEIN,URINE NEGATIVE (Neg); UROBILINOGEN,URINE 0.2 E.U/dL (0.2-1.0)
[2021-05-07 03:07] LABS: ALANINE AMINOTRANSFERASE 27 U/L (12-78); ALBUMIN/GLOBULIN RATIO 1.1 (1.1-1.5); ALKALINE PHOSPHATASE 94 IU/L (46-116); ANION GAP 10 (8-16); ASPARTATE AMINO TRANSFERASE 17 U/L (10-37); BILIRUBIN,TOTAL 0.4 MG/DL (0.1-1.0); BLOOD UREA NITROGEN 11 MG/DL (7-18); BUN/CREATININE RATIO 15.7 (6.6-38.0); CALCIUM 8.8 MG/DL (8.5-10.1); CHLORIDE 103 MMOL/L (99-107); GLUCOSE 91 MG/DL (70-104); SODIUM 141 MMOL/L (135-145); TOTAL CARBON DIOXIDE 27.7 MMOL/L (24-32); TOTAL PROTEIN 7.8 G/DL (6.4-8.2); eGFR > 90 ML/MIN
[2021-05-07 03:08] LABS: BASOPHILS # (AUTO) 0.1 X10'3 (0-0.2); BASOPHILS % (AUTO) 0.5 % (0-1); EOSINOPHILS # (AUTO) 0.4 X10'3 (0-0.9); EOSINOPHILS % (AUTO) 3.2 % (0-6); HEMATOCRIT 40.6 % (35.0-45.0); HEMOGLOBIN 13.6 g/dl (12.0-16.0); LYMPHOCYTES # (AUTO) 3.4 X10'3 (1.1-4.8); LYMPHOCYTES % (AUTO) 28.8 % (21-51); MEAN CORPUSCULAR HEMOGLOBIN 28.8 PG (27.0-31.0); MEAN CORPUSCULAR HGB CONC 33.5 g/dL (33.0-36.5); MEAN PLATELET VOLUME 8.5 FL (7.4-10.4); MONOCYTES # (AUTO) 0.6 X10'3 (0-0.9); MONOCYTES % (AUTO) 5.1 % (2-12); NEUTROPHILS # (AUTO) 7.3 X10'3 (1.8-7.7); NEUTROPHILS % (AUTO) 62.4 % (42-75); PLATELET COUNT 317 X10'3 (140-440); RED BLOOD COUNT 4.72 X10'6 (4.20-5.60); RED CELL DISTRIBUTION WIDTH 13.2 % (11.5-14.5); WHITE BLOOD COUNT 11.7 X10'3 (4.5-11.0)
[2021-05-07] MEDS ORDERED: METH-797 PO (03:49)
[2021-05-07] MEDS ORDERED: DIAZ-351 PO (03:49)
[2021-05-07 04:14] VITALS: BP 125/85
== END 2021-05-07 04:15 | disposition home or self-care (01) ==
LOC: ER 00:16
DX: M54.5 Low back pain (principal); N20.0 Calculus of kidney; R10.31 Right lower quadrant pain; J45.909 Unspecified asthma, uncomplicated; Z87.442 Personal history of urinary calculi; Z98.890 Other specified postprocedural states; Z88.5 Allergy status to narcotic agent; Z79.899 Other long term (current) drug therapy
CPT/HCPCS: 36415; 74176; 80053; 81003; 81025; 85025; 96374; 96375; 99284; J1885; J2405; J7030

== ENCOUNTER 2021-07-06 19:46 | Emergency (ER) | payer MEDICAID ==
[~2021-07-06] VITALS: Ht 167.6 cm; Wt 120.5 kg
[~2021-07-06 19:46] MED LIST changes: +DIAZ-351 PO; +METH-797 PO
[2021-07-06 20:40] LABS: URINE HCG NEGATIVE (NEG)
[2021-07-06 20:42] LABS: CLARITY,URINE CLEAR (Clear); COLOR,URINE YELLOW (Yellow); UA COLLECTION TYPE CLN CATCH MIDSTREAM
[2021-07-06 20:43] LABS: GLUCOSE, URINE NEGATIVE (Neg); KETONES,URINE NEGATIVE (Neg); LEUKOCYTE ESTERASE ,URINE NEGATIVE (Neg); NITRITES, URINE NEGATIVE (Neg); OCCULT BLOOD,URINE NEGATIVE (Neg); PROTEIN,URINE NEGATIVE (Neg); UROBILINOGEN,URINE 0.2 E.U/dL (0.2-1.0)
[2021-07-06 21:07] LABS: BASOPHILS % (AUTO) 0.5 % (0-1); EOSINOPHILS # (AUTO) 0.3 X10'3 (0-0.9); EOSINOPHILS % (AUTO) 2.6 % (0-6); HEMOGLOBIN 13.6 g/dl (12.0-16.0); LYMPHOCYTES # (AUTO) 3.2 X10'3 (1.1-4.8); LYMPHOCYTES % (AUTO) 31.1 % (21-51); MEAN CORPUSCULAR HEMOGLOBIN 29.5 PG (27.0-31.0); MEAN CORPUSCULAR HGB CONC 33.9 g/dL (33.0-36.5); MEAN CORPUSCULAR VOLUME 87.1 FL (78-98); MEAN PLATELET VOLUME 8.2 FL (7.4-10.4); MONOCYTES # (AUTO) 0.6 X10'3 (0-0.9); MONOCYTES % (AUTO) 5.8 % (2-12); NEUTROPHILS # (AUTO) 6.1 X10'3 (1.8-7.7); PLATELET COUNT 360 X10'3 (140-440); RED CELL DISTRIBUTION WIDTH 13.6 % (11.5-14.5); WHITE BLOOD COUNT 10.2 X10'3 (4.5-11.0)
[2021-07-06 21:20] LABS: ALANINE AMINOTRANSFERASE 24 U/L (12-78); ALBUMIN 3.6 G/DL (3.4-5.0); ALBUMIN/GLOBULIN RATIO 0.9 (1.1-1.5); ALKALINE PHOSPHATASE 81 IU/L (46-116); ANION GAP 9 (8-16); ASPARTATE AMINO TRANSFERASE 13 U/L (10-37); BILIRUBIN,TOTAL 0.2 MG/DL (0.1-1.0); BLOOD UREA NITROGEN 13 MG/DL (7-18); BUN/CREATININE RATIO 15.7 (6.6-38.0); CHLORIDE 106 MMOL/L (99-107); CREATININE 0.83 MG/DL (0.40-0.90); GLUCOSE 114 MG/DL (70-104); POTASSIUM 3.9 MMOL/L (3.5-5.1); SODIUM 142 MMOL/L (135-145); TOTAL CARBON DIOXIDE 27.2 MMOL/L (24-32); TOTAL PROTEIN 7.7 G/DL (6.4-8.2); eGFR 81 ML/MIN
[2021-07-06] MEDS ORDERED: normal saline 1000ML IV soln IVB ONE (22:25)
[2021-07-06] MEDS ORDERED: ketorolac trometh. 30mg/ml inj. IV ONE (22:25)
[2021-07-06] MEDS ORDERED: ondansetron/PF 4mg/2ml inj IV ONE (22:25)
[2021-07-06] MEDS ORDERED: LORazepam 2 mg/ml vial IV ONE (23:15)
[2021-07-06] MEDS ORDERED: oxyCODONE/APAP 10/325mg tablet PO ONE (23:15)
[2021-07-06] MEDS ORDERED: HYDR-3965 PO (23:17)
[2021-07-07 00:23] VITALS: BP 135/90
== END 2021-07-07 00:29 | disposition home or self-care (01) ==
LOC: ER 19:47
DX: N20.0 Calculus of kidney (principal); N23 Unspecified renal colic; J45.909 Unspecified asthma, uncomplicated; Z87.442 Personal history of urinary calculi; Z98.890 Other specified postprocedural states; Z88.5 Allergy status to narcotic agent; Z79.899 Other long term (current) drug therapy
CPT/HCPCS: 36415; 74176; 80053; 81003; 81025; 85025; 96374; 96375; 99284; J1885; J2060; J2405; J7030

== ENCOUNTER 2021-07-08 21:24 | Emergency (ER) | payer MEDICAID ==
[~2021-07-08] VITALS: Ht 167.6 cm; Wt 119.5 kg
[~2021-07-08 21:24] MED LIST changes: +HYDR-3965 PO
--- NOTE | 2021-07-09 00:15 | NUR ---
PT STATED 'MY IS MY SPOKEPERSON'.
[2021-07-09 00:54] LABS: HEMOGLOBIN 12.6 g/dl (12.0-16.0); MEAN PLATELET VOLUME 8.2 FL (7.4-10.4); WHITE BLOOD COUNT 9.2 X10'3 (4.5-11.0)
[2021-07-09 00:56] LABS: BASOPHILS % (AUTO) 0.3 % (0-1); EOSINOPHILS # (AUTO) 0.3 X10'3 (0-0.9); EOSINOPHILS % (AUTO) 3.8 % (0-6); HEMATOCRIT 36.5 % (35.0-45.0); LYMPHOCYTES # (AUTO) 3.7 X10'3 (1.1-4.8); MEAN CORPUSCULAR HEMOGLOBIN 29.8 PG (27.0-31.0); MEAN CORPUSCULAR HGB CONC 34.4 g/dL (33.0-36.5); MEAN CORPUSCULAR VOLUME 86.8 FL (78-98); MONOCYTES # (AUTO) 0.7 X10'3 (0-0.9); MONOCYTES % (AUTO) 7.6 % (2-12); NEUTROPHILS # (AUTO) 4.4 X10'3 (1.8-7.7); NEUTROPHILS % (AUTO) 48.3 % (42-75); PLATELET COUNT 325 X10'3 (140-440); RED BLOOD COUNT 4.21 X10'6 (4.20-5.60); RED CELL DISTRIBUTION WIDTH 13.2 % (11.5-14.5)
[2021-07-09 00:57] LABS: URINE HCG NEGATIVE (NEG)
[2021-07-09 01:02] LABS: URINE AMPHETAMINE SCREEN NEGATIVE (Neg); URINE BARBITUATE SCREEN NEGATIVE (Neg); URINE BENZODIAZEPINES SCREEN NEGATIVE (Neg); URINE CANNABINOID SCREEN NEGATIVE (Neg); URINE COCAINE SCREEN NEGATIVE (Neg); URINE METHADONE SCREEN NEGATIVE (Neg); URINE OPIATE SCREEN NEGATIVE (Neg); URINE PHENCYCLIDINE SCREEN NEGATIVE (Neg)
[2021-07-09 01:12] LABS: ALANINE AMINOTRANSFERASE 25 U/L (12-78); ALBUMIN 3.4 G/DL (3.4-5.0); ALBUMIN/GLOBULIN RATIO 0.9 (1.1-1.5); ALKALINE PHOSPHATASE 74 IU/L (46-116); ANION GAP 4 (8-16); ASPARTATE AMINO TRANSFERASE 13 U/L (10-37); BILIRUBIN,TOTAL 0.2 MG/DL (0.1-1.0); BLOOD UREA NITROGEN 10 MG/DL (7-18); BUN/CREATININE RATIO 12.5 (6.6-38.0); CALCIUM 8.5 MG/DL (8.5-10.1); CHLORIDE 109 MMOL/L (99-107); ETHANOL < 0.010 GM/DL (0.0-0.010); GLUCOSE 83 MG/DL (70-104); POTASSIUM 3.6 MMOL/L (3.5-5.1); SODIUM 143 MMOL/L (135-145); TOTAL CARBON DIOXIDE 30.4 MMOL/L (24-32); eGFR 84 ML/MIN
--- NOTE | 2021-07-09 01:42 | NUR ---
PT'S LEFT PHONE NUMBER FOR CONTACT, . STATES THAT THE PT IS NOT ALWAYS FORTHCOMING ABOUT HER FEELINGS WHEN SPEAKING TO MENTAL HEALTH, WOULD LIKE TO SPEAK WITH MENTAL HEALTH SUPPORT SPECIALIST TO MAKE SURE THE PT TELLS THEM EVERYTHING THAT HAS BEEN HAPPENING
--- NOTE | 2021-07-09 01:45 | NUR ---
VIN COCHRAN, , PHONE #[phone]
--- NOTE | 2021-07-09 02:00 | NUR ---
pt has been moved bed 8
--- NOTE | 2021-07-09 03:26 | NUR ---
PT SLEEPING. SITTER OUTSIDE ROOM.
--- NOTE | 2021-07-09 04:03 | NUR ---
PT BANGING ON GLASS DOORS. SCREAMING. WANTS TO LEAVE. PT EXPLAINED THAT SHE IS ON A HOLD. SECURITY ON STANDBY
[2021-07-09] MEDS ORDERED: LORazepam 2 mg/ml vial IM ONE (04:05)
[2021-07-09] MEDS ORDERED: haloperidol lactate 5mg/ml inj IM ONE (04:05)
[2021-07-09] MEDS ORDERED: diphenhydrAMINE 50 mg/ml inj IM ONE (04:05)
--- NOTE | 2021-07-09 04:20 | NUR ---
PT WAS MEDICATED BY REAGENT TENDER HELPER
--- NOTE | 2021-07-09 05:36 | NUR ---
PT IS NOW SLEEPING
[2021-07-09 13:29] LABS: BASOPHILS % (AUTO) 0.4 % (0-1); EOSINOPHILS # (AUTO) 0.3 X10'3 (0-0.9); EOSINOPHILS % (AUTO) 3.6 % (0-6); HEMATOCRIT 39.8 % (35.0-45.0); HEMOGLOBIN 13.1 g/dl (12.0-16.0); LYMPHOCYTES # (AUTO) 2.5 X10'3 (1.1-4.8); LYMPHOCYTES % (AUTO) 30.3 % (21-51); MEAN CORPUSCULAR HEMOGLOBIN 29.1 PG (27.0-31.0); MEAN CORPUSCULAR VOLUME 88.3 FL (78-98); MEAN PLATELET VOLUME 8.4 FL (7.4-10.4); MONOCYTES # (AUTO) 0.6 X10'3 (0-0.9); MONOCYTES % (AUTO) 7.6 % (2-12); NEUTROPHILS # (AUTO) 4.7 X10'3 (1.8-7.7); NEUTROPHILS % (AUTO) 58.1 % (42-75); PLATELET COUNT 304 X10'3 (140-440); RED BLOOD COUNT 4.51 X10'6 (4.20-5.60); RED CELL DISTRIBUTION WIDTH 13.9 % (11.5-14.5); WHITE BLOOD COUNT 8.2 X10'3 (4.5-11.0)
[2021-07-09] MEDS: acetaminophen 325mg tablet PO PRN (21:45)
[2021-07-10] MEDS ORDERED: diphenhydrAMINE 25mg capsule PO ONE (02:50)
[2021-07-10] MEDS ORDERED: acetaminophen 325mg tablet PO ONE ×2 (02:50→14:10)
--- NOTE | 2021-07-10 10:20 | NUR ---
Pt is awake. She made a verbal agreement that she will not harm herself while she is here in our hospital.
[2021-07-10] MEDS: acetaminophen 325mg tablet PO PRN (21:07)
--- NOTE | 2021-07-10 22:00 | NUR ---
Patient currently denying any suicidal or homicidal ideation. Patient states she had a black out prior to admission and believes she should be going home. Patient stated she believes she had a bad reaction to being given Ativan prior to this admission. Patient being cared for in safe environment.
--- NOTE | 2021-07-11 04:25 | NUR ---
Patient observed resting comfortably in room.
[2021-07-11] MEDS: acetaminophen 325mg tablet PO PRN (09:31)
--- NOTE | 2021-07-11 11:00 | NUR ---
Patient asking to use the phone. RN hooked up the phone in patient's room. Patient states she has been asking for a phone since last night. Patient was calm and then began yelling onthe phone. Patient is now calm again. Continue to monitor.
--- NOTE | 2021-07-11 11:53 | NUR ---
Patient is still on the phone. No distress observed. Continue to monitor.
[2021-07-11] MEDS ORDERED: PALI156D IM (11:58)
[2021-07-11] MEDS ORDERED: ARIP400S3 IM (12:03)
--- NOTE | 2021-07-11 13:05 | NUR ---
Patient eating lunch. RN spoke to patient. Patient denies any Covid symptoms. Patient denies suicidal ideation. Patient explained to RN that her children were taken away from them last August. She is depressed and gets angry at times but denies she is suicidal. Patient is very frustrated being on a hold in a glass room. Patient has been here for 3 days. RN spoke to [facility] Nicole who stated she would evaluate her with a phone through the glass door. RN to send the packet to [facility].
--- NOTE | 2021-07-11 13:55 | NUR ---
RN spoke to who gave RN the same story. RN pending speaking to patient's mother. Continue to monitor.
--- NOTE | 2021-07-11 14:55 | NUR ---
Patient is calm and in no distress. Continue to monitor.
--- NOTE | 2021-07-11 15:37 | NUR ---
ALEX faxed [facility] packet X 3.
--- NOTE | 2021-07-11 17:38 | NUR ---
RN has attempted to fax the packet from 4 different fax machines x 2-3 each fax. No success.
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
--- NOTE | 2021-07-11 18:30 | NUR ---
ASSUMED CARE OF PT.
--- NOTE | 2021-07-11 19:31 | NUR ---
PT REQUESTED TYLENOL FOR STEVENS. PT MEDICATED. PT INTERACTIONS WITH ME DURING MED PASS HAVE BEEN COURTEOUS.
--- NOTE | 2021-07-11 20:53 | NUR ---
PT REQUESTED BENADRYL TO SLEEP. DR LAYNE GAVE VERBAL ORDER FOR 50 BENADRYL PO ONCE.
[2021-07-11] MEDS ORDERED: diphenhydrAMINE 25mg capsule PO ONE (20:55)
--- NOTE | 2021-07-11 23:16 | NUR ---
Pt sleeping at this time.
--- NOTE | 2021-07-12 01:31 | NUR ---
Pt sleeping repositions self.
--- NOTE | 2021-07-12 03:25 | NUR ---
Pt sleeping at this time.
[2021-07-12 07:00] VITALS: BP 118/78
--- NOTE | 2021-07-12 09:37 | NUR ---
[facility] AT BEDSIDE SPEAKING WITH PATIENT.
[2021-07-24] MEDS ORDERED: CHOL20004 PO (14:22)
[2021-07-24] MEDS ORDERED: ONDA4TAB6 PO (14:22)
[2021-07-24] MEDS ORDERED: ALBU18HF2 INH (14:34)
== END 2021-07-12 11:11 ==
LOC: ER 21:24
DX: U07.1 COVID-19 (principal); R45.851 Suicidal ideations; J45.909 Unspecified asthma, uncomplicated; Z87.442 Personal history of urinary calculi; Z98.890 Other specified postprocedural states; Z88.5 Allergy status to narcotic agent; Z88.8 Allergy status to other drugs, medicaments and biological substances; Z79.899 Other long term (current) drug therapy
CPT/HCPCS: 36415; 80053; 80305; 80320; 81025; 85025; 87635; 96372; 99285; C9803; J1200; J1630; J2060

== ENCOUNTER → 2021-07-24 | Emergency (ER) | payer MEDICAID ==
[~2021-07-24] VITALS: Ht 167.6 cm; Wt 120.4 kg
[~2021-07-24] MED LIST changes: +ALBU18HF2 INH; +ARIP400S3 IM; +BAMLANIVIMAB 700MG, ETESEVIMAB 1,400MG in NS 100mL (Total vol 160ml) IV ONE; +CASIRIVIMAB/IMDEVIMAB inject. 10 ML in normal saline 100ml IV soln 100 ML IV ONE; +CHOL20004 PO; -CYCL-1 PO; +DEXAMETHASONE 6 MG TABLET PO ONE; -DIAZ-351 PO; -HYDR-3965 PO; -HYDR-4383 PO; -METH-797 PO; -ONDA4TAB12 PO; +ONDA4TAB6 PO; +dexamethasone 4mg tablet PO ONE
--- NOTE | 2021-07-24 13:58 | NUR ---
AFTER 1 MINUTE INTO THE INFUSION PT REPORTS INCREASING CHEST TIGHTNESS, PAIN IN BACK AND SOB. NOTIFIED, STOPPED THE INFUSION. Addendum: 07/24/21 at 1406 by HLAIRD PT ALSO REPORTED " IM REALLY HOT AND CANT CATCH MY BREATH. Addendum: 07/24/21 at 1408 by HLAIRD INFUSION STOPPED
--- NOTE | 2021-07-24 14:02 | NUR ---
PT REPORTS SYMPTOMS ARE LESSING FROM THE INFUSION. VS STABLE.
[2021-07-24 14:46] VITALS: BP 118/85
== END | disposition home or self-care (01) ==
LOC: ER 11:53
DX: U07.1 COVID-19 (principal); J45.909 Unspecified asthma, uncomplicated; Z87.442 Personal history of urinary calculi; Z88.5 Allergy status to narcotic agent; Z79.899 Other long term (current) drug therapy; Z88.8 Allergy status to other drugs, medicaments and biological substances
CPT/HCPCS: 71045; 99284; M0245; Q0239; Q0245; J3490; J8540

== ENCOUNTER 2021-08-02 16:25 | Emergency (ER) | payer MEDICAID ==
[~2021-08-02] VITALS: Ht 167.6 cm; Wt 121.4 kg
[~2021-08-02 16:25] MED LIST changes: -BAMLANIVIMAB 700MG, ETESEVIMAB 1,400MG in NS 100mL (Total vol 160ml) IV ONE; -CASIRIVIMAB/IMDEVIMAB inject. 10 ML in normal saline 100ml IV soln 100 ML IV ONE; -DEXAMETHASONE 6 MG TABLET PO ONE; -dexamethasone 4mg tablet PO ONE
[2021-08-02 17:15] LABS: BASOPHILS % (AUTO) 0.4 % (0-1); EOSINOPHILS # (AUTO) 0.3 X10'3 (0-0.9); EOSINOPHILS % (AUTO) 2.7 % (0-6); HEMATOCRIT 39.1 % (35.0-45.0); HEMOGLOBIN 13.1 g/dl (12.0-16.0); LYMPHOCYTES # (AUTO) 2.4 X10'3 (1.1-4.8); LYMPHOCYTES % (AUTO) 24.1 % (21-51); MEAN CORPUSCULAR HEMOGLOBIN 29.4 PG (27.0-31.0); MEAN CORPUSCULAR HGB CONC 33.6 g/dL (33.0-36.5); MEAN CORPUSCULAR VOLUME 87.5 FL (78-98); MEAN PLATELET VOLUME 7.7 FL (7.4-10.4); MONOCYTES # (AUTO) 0.6 X10'3 (0-0.9); MONOCYTES % (AUTO) 6.5 % (2-12); NEUTROPHILS # (AUTO) 6.5 X10'3 (1.8-7.7); NEUTROPHILS % (AUTO) 66.3 % (42-75); PLATELET COUNT 312 X10'3 (140-440); RED BLOOD COUNT 4.47 X10'6 (4.20-5.60); RED CELL DISTRIBUTION WIDTH 13.9 % (11.5-14.5); WHITE BLOOD COUNT 9.9 X10'3 (4.5-11.0)
[2021-08-02 17:29] LABS: ALANINE AMINOTRANSFERASE 27 U/L (12-78); ALBUMIN 3.5 G/DL (3.4-5.0); ALBUMIN/GLOBULIN RATIO 0.9 (1.1-1.5); ALKALINE PHOSPHATASE 72 IU/L (46-116); ANION GAP 9 (8-16); ASPARTATE AMINO TRANSFERASE 12 U/L (10-37); BILIRUBIN,TOTAL 0.2 MG/DL (0.1-1.0); BLOOD UREA NITROGEN 9 MG/DL (7-18); BUN/CREATININE RATIO 10.5 (6.6-38.0); CHLORIDE 101 MMOL/L (99-107); CREATININE 0.86 MG/DL (0.40-0.90); GLUCOSE 92 MG/DL (70-104); POTASSIUM 3.8 MMOL/L (3.5-5.1); SODIUM 139 MMOL/L (135-145); TOTAL CARBON DIOXIDE 28.7 MMOL/L (24-32); TOTAL PROTEIN 7.3 G/DL (6.4-8.2); eGFR 77 ML/MIN
[2021-08-02 17:52] LABS: BETA HCG,QUANTITATIVE 9023 mIU/ml
[2021-08-02 18:20] LABS: CLARITY,URINE SLIGHTLY CLOUDY (Clear); COLOR,URINE YELLOW (Yellow); GLUCOSE, URINE NEGATIVE (Neg); KETONES,URINE NEGATIVE (Neg); LEUKOCYTE ESTERASE ,URINE NEGATIVE (Neg); NITRITES, URINE NEGATIVE (Neg); OCCULT BLOOD,URINE NEGATIVE (Neg); PROTEIN,URINE NEGATIVE (Neg)
[2021-08-02 18:26] LABS: UA COLLECTION TYPE CLN CATCH MIDSTREAM
[2021-08-02 18:27] LABS: BACTERIA,URINE FEW /HPF (Neg); RBC,URINE 0-2 /HPF (0-2); SQUAMOUS EPITHELIAL CELL,UR MODERATE /LPF (FEW); WBC,URINE 0-4 /HPF (0-4)
[2021-08-02] MEDS ORDERED: acetaminophen 325mg tablet PO ONE (18:45)
[2021-08-02 20:08] VITALS: BP 118/74
== END 2021-08-02 20:09 | disposition home or self-care (01) ==
LOC: ER 16:26
DX: O26.891 Other specified pregnancy related conditions, first trimester (principal); R10.30 Lower abdominal pain, unspecified; Z88.5 Allergy status to narcotic agent; Z88.8 Allergy status to other drugs, medicaments and biological substances; Z79.899 Other long term (current) drug therapy
CPT/HCPCS: 36415; 76801; 76817; 76830; 80053; 81001; 83735; 84702; 85025; 99284

== ENCOUNTER 2021-09-30 20:07 | Emergency (ER) | payer MEDICAID ==
[~2021-09-30] VITALS: Ht 167.6 cm; Wt 127.8 kg
[2021-09-30 21:31] VITALS: BP 115/76
[2021-09-30 23:05] LABS: BASOPHILS % (AUTO) 0.3 % (0-1); EOSINOPHILS # (AUTO) 0.3 X10'3 (0-0.9); EOSINOPHILS % (AUTO) 2.6 % (0-6); HEMATOCRIT 35.1 % (35.0-45.0); HEMOGLOBIN 12.1 g/dl (12.0-16.0); LYMPHOCYTES # (AUTO) 2.6 X10'3 (1.1-4.8); LYMPHOCYTES % (AUTO) 24.2 % (21-51); MEAN CORPUSCULAR HGB CONC 34.5 g/dL (33.0-36.5); MEAN PLATELET VOLUME 8.1 FL (7.4-10.4); MONOCYTES # (AUTO) 0.6 X10'3 (0-0.9); MONOCYTES % (AUTO) 5.5 % (2-12); NEUTROPHILS # (AUTO) 7.3 X10'3 (1.8-7.7); NEUTROPHILS % (AUTO) 67.4 % (42-75); PLATELET COUNT 273 X10'3 (140-440); RED BLOOD COUNT 4.04 X10'6 (4.20-5.60); RED CELL DISTRIBUTION WIDTH 13.6 % (11.5-14.5); WHITE BLOOD COUNT 10.8 X10'3 (4.5-11.0)
[2021-09-30 23:16] LABS: ALBUMIN 2.9 G/DL (3.4-5.0); ANION GAP 8 (8-16); BLOOD UREA NITROGEN 7 MG/DL (7-18); BUN/CREATININE RATIO 13.5 (6.6-38.0); CALCIUM 8.8 MG/DL (8.5-10.1); CHLORIDE 104 MMOL/L (99-107); CREATININE 0.52 MG/DL (0.40-0.90); GLUCOSE 106 MG/DL (70-104); POTASSIUM 3.5 MMOL/L (3.5-5.1); SODIUM 138 MMOL/L (135-145); TOTAL CARBON DIOXIDE 25.9 MMOL/L (24-32); eGFR > 90 ML/MIN
== END 2021-10-01 00:26 | disposition home or self-care (01) ==
LOC: ER 20:08
DX: O26.891 Other specified pregnancy related conditions, first trimester (principal); R07.89 Other chest pain; R06.02 Shortness of breath; F41.9 Anxiety disorder, unspecified; J45.909 Unspecified asthma, uncomplicated; Z3A.12 12 weeks gestation of pregnancy; Z87.442 Personal history of urinary calculi; Z98.890 Other specified postprocedural states; Z88.5 Allergy status to narcotic agent; Z88.8 Allergy status to other drugs, medicaments and biological substances; Z79.899 Other long term (current) drug therapy
CPT/HCPCS: 36415; 80048; 85025; 93005; 99284

== ENCOUNTER 2022-05-04 06:01 | Day surgery (SDC) | payer MEDICAID ==
[2022-05-03 10:45] LABS: BASOPHILS % (AUTO) 0.4 % (0-1); EOSINOPHILS # (AUTO) 0.2 X10'3 (0-0.9); LYMPHOCYTES # (AUTO) 2.2 X10'3 (1.1-4.8); LYMPHOCYTES % (AUTO) 29.5 % (21-51); MEAN CORPUSCULAR HEMOGLOBIN 27.8 PG (27.0-31.0); MEAN CORPUSCULAR HGB CONC 32.9 g/dL (33.0-36.5); MEAN CORPUSCULAR VOLUME 84.4 FL (78-98); MEAN PLATELET VOLUME 8.3 FL (7.4-10.4); MONOCYTES # (AUTO) 0.4 X10'3 (0-0.9); MONOCYTES % (AUTO) 5.6 % (2-12); NEUTROPHILS # (AUTO) 4.5 X10'3 (1.8-7.7); NEUTROPHILS % (AUTO) 61.5 % (42-75); PRE OP HEMATOCRIT 39.8 % (35.0-45.0); PRE OP HEMOGLOBIN 13.1 g/dL (12.0-16.0); PRE OP PLATELET COUNT 270 X10'3 (140-440); RED BLOOD COUNT 4.71 X10'6 (4.20-5.60); RED CELL DISTRIBUTION WIDTH 16.6 % (11.5-14.5)
[2022-05-03 10:46] LABS: CLARITY,URINE SLIGHTLY CLOUDY (Clear); COLOR,URINE YELLOW (Yellow); GLUCOSE, URINE NEGATIVE (Neg); KETONES,URINE NEGATIVE (Neg); LEUKOCYTE ESTERASE ,URINE NEGATIVE (Neg); NITRITES, URINE NEGATIVE (Neg); OCCULT BLOOD,URINE NEGATIVE (Neg); PH,URINE 7.5 (4.8-8.0); PROTEIN,URINE NEGATIVE (Neg); UROBILINOGEN,URINE 0.2 E.U/dL (0.2-1.0)
[2022-05-03 11:07] LABS: UA COLLECTION TYPE CLN CATCH MIDSTREAM
[2022-05-03 11:08] LABS: WBC,URINE 0-4 /HPF (0-4)
[2022-05-03 11:09] LABS: BACTERIA,URINE FEW /HPF (Neg); MUCUS STRANDS FEW /LPF (Neg); RBC,URINE NONE SEEN /HPF (0-2); SQUAMOUS EPITHELIAL CELL,UR MODERATE /LPF (FEW)
[2022-05-03 11:15] LABS: ALBUMIN 3.5 G/DL (3.4-5.0); ALBUMIN/GLOBULIN RATIO 0.8 (1.1-1.5); ALKALINE PHOSPHATASE 109 IU/L (46-116); BLOOD UREA NITROGEN 11 MG/DL (7-18); CALCIUM 9.3 MG/DL (8.5-10.1); CHLORIDE 103 MMOL/L (99-107); CREATININE 0.61 MG/DL (0.40-0.90); PRE OP ALT 26 U/L (30-65); PRE OP ANION GAP 9 (8-16); PRE OP AST 18 U/L (10-37); PRE OP BILIRUB, TOTAL 0.3 MG/DL (0.0-1.0); PRE OP GLUCOSE 87 MG/DL (70-104); PRE OP POTASSIUM 4.2 MMOL/L (3.4-5.1); PRE OP SODIUM 140 MMOL/L (135-145); TOTAL PROTEIN 7.8 G/DL (6.4-8.2); eGFR > 90 ML/MIN
[2022-05-03 11:46] LABS: HCG SERUM QL NEGATIVE
[2022-05-04] VITALS (10 sets, daily range): BP systolic 106–142; BP diastolic 43–93
[~2022-05-04] VITALS: Ht 170.2 cm; Wt 117.3 kg
[~2022-05-04 06:01] MED LIST changes: -ALBU18HF2 INH; -ARIP400S3 IM; -CHOL20004 PO; +FERR-29 PO; -ONDA4TAB6 PO; +RISP1TAB98 PO; +ceFOXitin 2GM-NS 100mL ADDvant 100 ML IV ONE; +famotidine 20mg tablet PO ONE; +ringers solution, lacted 1,000 ML IV SCH
[2022-05-04] MEDS ORDERED: ondansetron/PF 4mg/2ml inj IV PRN (08:00)
[2022-05-04] MEDS ORDERED: meperidine/PF 25mg/ml syringe IV PRN ×3 (08:00)
[2022-05-04] MEDS ORDERED: proCHLORperazine 10 MG/2 ml inj IV PRN (08:00)
[2022-05-04] MEDS ORDERED: ringers solution, lacted 1,000 ML IV SCH (08:00)
[2022-05-04] MEDS ORDERED: BUPIVAcaine/PF 2.5 mg/ml (0.25%) 30ml vial ONE (09:20)
[2022-05-04] MEDS ORDERED: midazolam 1 mg/ML 2ml injection ONE (09:43)
[2022-05-04] MEDS ORDERED: fentaNYL/PF 50MCG/1 ML 2ML syringe ONE (09:43)
[2022-05-04] MEDS ORDERED: propofol inj 20 ML IV ONE (10:05)
[2022-05-04] MEDS ORDERED: meperidine/PF 25mg/ml syringe ONE (10:05)
[2022-05-04] MEDS ORDERED: rocuronium 10mg/ml inj IV ONE (10:08)
[2022-05-04] MEDS ORDERED: ketorolac trometh. 30mg/ml inj. ONE (10:44)
--- NOTE | 2022-05-04 10:54 | NUR ---
Received from OR via SARAH, accompanied by Anesthesiologist and report given by LORRI Anesthesiologist. PATIENT WAKING UP, DENIES PAIN, V/S WNL, SCD ON , PIV 20G JIM LOPZE SITES C/D/I TO ABDOMEN. Addendum: 05/04/22 at 1109 by Tomás Rich RN Amended: Links added.
--- NOTE | 2022-05-04 12:04 | NUR ---
ALL DISCHARGE CRITERIA HAS BEEN MET. VSS, PAIN AT A TOLERABLE LEVEL, VOIDING AND ABLE TO SAFELY AMBULATE AND TRANSFER SELF. IV TAKEN OUT WITHOUT ANY COMPLICATIONS. ALL DISCHARGE INSTRUCTIONS COVERED WITH PATIENT AND ALL QUESTIONS ANSWERED. PATIENT TAKEN OUT VIA WHEELCHAIR WITH ALL BELONGINGS TO PERSONAL VEHICLE WHERE FAMILY DROVE PATIENT HOME. Addendum: 05/04/22 at 1209 by Tomás Rich RN Amended: Links added.
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
== END 2022-05-04 12:04 | disposition home or self-care (01) ==
LOC: PAS 06:01
PROVIDERS: ATTEND Surgery
DX: K80.10 Calculus of gallbladder with chronic cholecystitis without obstruction (principal); F31.9 Bipolar disorder, unspecified; Z79.899 Other long term (current) drug therapy; Z87.442 Personal history of urinary calculi; Z98.890 Other specified postprocedural states; Z88.6 Allergy status to analgesic agent; Z88.8 Allergy status to other drugs, medicaments and biological substances; Z91.041 Radiographic dye allergy status; F17.210 Nicotine dependence, cigarettes, uncomplicated
CPT/HCPCS: 36415; 47562; 80053; 81001; 82948; 84703; 85025; 87811; 93005; J0694; J1885; J2175; J2250; J2405; J2704; J3010; J3490; J7030; J7120; Z7506; Z7508; Z7512; A4215; A4618; A6449; A7000

== ENCOUNTER 2022-09-22 21:19 | Emergency (ER) | payer MEDICAID ==
[~2022-09-22] VITALS: Ht 167.6 cm; Wt 131.8 kg
[~2022-09-22 21:19] MED LIST changes: -ceFOXitin 2GM-NS 100mL ADDvant 100 ML IV ONE; -famotidine 20mg tablet PO ONE; -ringers solution, lacted 1,000 ML IV SCH
[2022-09-22 22:51] LABS: BASOPHILS # (AUTO) 0.1 X10'3 (0-0.2); BASOPHILS % (AUTO) 0.7 % (0-1); EOSINOPHILS # (AUTO) 0.5 X10'3 (0-0.9); EOSINOPHILS % (AUTO) 5.8 % (0-6); HEMATOCRIT 29.4 % (35.0-45.0); LYMPHOCYTES # (AUTO) 2.7 X10'3 (1.1-4.8); LYMPHOCYTES % (AUTO) 33.3 % (21-51); MEAN CORPUSCULAR HEMOGLOBIN 30.8 PG (27.0-31.0); MEAN CORPUSCULAR VOLUME 90.4 FL (78-98); MONOCYTES # (AUTO) 0.5 X10'3 (0-0.9); MONOCYTES % (AUTO) 5.6 % (2-12); NEUTROPHILS # (AUTO) 4.4 X10'3 (1.8-7.7); NEUTROPHILS % (AUTO) 54.6 % (42-75); PLATELET COUNT 243 X10'3 (140-440); RED BLOOD COUNT 3.25 X10'6 (4.20-5.60); RED CELL DISTRIBUTION WIDTH 16.7 % (11.5-14.5); WHITE BLOOD COUNT 8.1 X10'3 (4.5-11.0)
[2022-09-22 23:00] LABS: ALANINE AMINOTRANSFERASE 20 U/L (12-78); ALBUMIN 3.1 G/DL (3.4-5.0); ALKALINE PHOSPHATASE 69 IU/L (46-116); ANION GAP 6 (8-16); ASPARTATE AMINO TRANSFERASE 20 U/L (10-37); BILIRUBIN,TOTAL 0.2 MG/DL (0.1-1.0); BLOOD UREA NITROGEN 13 MG/DL (7-18); BUN/CREATININE RATIO 17.6 (6.6-38.0); CALCIUM 7.4 MG/DL (8.5-10.1); CHLORIDE 110 MMOL/L (99-107); CREATININE 0.74 MG/DL (0.40-0.90); LIPASE 105 U/L (73-393); SODIUM 141 MMOL/L (135-145); TOTAL CARBON DIOXIDE 24.9 MMOL/L (24-32); TOTAL PROTEIN 6.1 G/DL (6.4-8.2); eGFR > 90 ML/MIN
--- NOTE | 2022-09-22 23:05 | NUR ---
Previous documented assessment reviewed, commercial underwriter agrees with this assessment.
[2022-09-22 23:10] LABS: GLUCOSE 82 MG/DL (70-104)
[2022-09-22 23:12] LABS: POTASSIUM 2.9 MMOL/L (3.5-5.1)
[2022-09-22] MEDS ORDERED: dicyclomine 10 MG capsule PO ONE (23:15)
[2022-09-22 23:42] LABS: CLARITY,URINE CLOUDY (Clear); COLOR,URINE YELLOW (Yellow); GLUCOSE, URINE NEGATIVE (Neg); KETONES,URINE NEGATIVE (Neg); LEUKOCYTE ESTERASE ,URINE NEGATIVE (Neg); NITRITES, URINE NEGATIVE (Neg); OCCULT BLOOD,URINE NEGATIVE (Neg); PROTEIN,URINE NEGATIVE (Neg); UROBILINOGEN,URINE 0.2 E.U/dL (0.2-1.0)
[2022-09-22 23:43] LABS: URINE HCG NEGATIVE (NEG)
[2022-09-22 23:44] LABS: UA COLLECTION TYPE VOIDED
[2022-09-22 23:53] LABS: BACTERIA,URINE FEW /HPF (Neg); RBC,URINE 0-2 /HPF (0-2); SQUAMOUS EPITHELIAL CELL,UR FEW /LPF (FEW); WBC,URINE 0-4 /HPF (0-4)
[2022-09-22 23:54] LABS: AMORPHOUS PHOSPHATES 4+
[2022-09-22] MEDS ORDERED: potassium Cl 10 mEq/100mL bag IV ONE (23:55)
[2022-09-22] MEDS ORDERED: magnesium 2GM in 50ml NS 50 ML IV ONE (23:55)
[2022-09-23] MEDS ORDERED: normal saline 1000ml 1,000 ML IV ONE (00:05)
[2022-09-23 00:30] LABS: MAGNESIUM 1.8 MG/DL (1.5-2.4)
[2022-09-23 00:32] LABS: ETHANOL < 0.010 GM/DL (0.0-0.010)
[2022-09-23] MEDS ORDERED: ketorolac trometh. 30mg/ml inj. IV ONE (01:10)
[2022-09-23 02:12] LABS: URINE AMPHETAMINE SCREEN NEGATIVE (Neg); URINE BARBITUATE SCREEN NEGATIVE (Neg); URINE BENZODIAZEPINES SCREEN NEGATIVE (Neg); URINE CANNABINOID SCREEN NEGATIVE (Neg); URINE COCAINE SCREEN NEGATIVE (Neg); URINE METHADONE SCREEN NEGATIVE (Neg); URINE OPIATE SCREEN NEGATIVE (Neg); URINE PHENCYCLIDINE SCREEN NEGATIVE (Neg)
[2022-09-23 02:25] VITALS: BP 108/83
--- NOTE | 2022-09-23 02:27 | NUR ---
PT NOW C/O RT ARM DISCOMFORT. PT DESCRIBES THE PAIN A NUMBNESS AND HEAVINESS STARTING AT THE SHOULDER AND RADIATING DOWN THROUGH THE WHOLE ARM. DR SAUCEDA NOTIFIED.
[2022-09-23] MEDS ORDERED: potassium CL 10mEq/100ml bag 100 ML IV SCH (02:30)
[2022-09-23] MEDS ORDERED: dicyclomine 10 MG capsule PO ONE (02:35)
--- NOTE | 2022-09-23 02:36 | NUR ---
PT REPORTS ABD PAIN LEVEL 9/10 BUT IS NOT APPEARING SYMPTOMATIC PER MD SAUCEDA. THE PT IS REQUESTING NARCOTICS FOR PAIN RELIEF PER DR SAUCEDA PAIN MEDICATIONS ARE TO BE HELD AT THIS TIME.
[2022-09-23] MEDS: POTASSIUM BICARB 20meq eff tab 20 MEQ TABLET.EFF PO SCH ×2 (02:43→02:48)
[2022-09-23] MEDS: potassium CL 10mEq/100ml bag 100 ML IV SCH ×2 (02:53→03:18)
== END 2022-09-23 03:23 | disposition home or self-care (01) ==
LOC: ER 21:19
DX: E87.6 Hypokalemia (principal); R10.32 Left lower quadrant pain; J45.909 Unspecified asthma, uncomplicated; Z88.5 Allergy status to narcotic agent; Z88.8 Allergy status to other drugs, medicaments and biological substances; Z90.49 Acquired absence of other specified parts of digestive tract; Z98.890 Other specified postprocedural states
CPT/HCPCS: 36415; 74176; 80053; 80305; 80320; 81001; 81025; 83690; 83735; 85025; 93005; 96361; 96365; 96366; 96368; 96375; 99285; J1885; J3475; J3480; J7030

== ENCOUNTER 2023-02-13 11:28 | Emergency (ER) | payer MEDICAID ==
[~2023-02-13] VITALS: Ht 167.6 cm; Wt 275.0 kg
[2023-02-13 11:36] VITALS: BP 129/92
[2023-02-13] MEDS ORDERED: HYDROcodone/acetaminophen 10/325mg tab PO ONE (14:30)
[2023-02-13 15:03] LABS: BASOPHILS % (AUTO) 0.3 % (0-1); EOSINOPHILS # (AUTO) 0.4 X10'3 (0-0.9); EOSINOPHILS % (AUTO) 4.7 % (0-6); HEMATOCRIT 38.1 % (35.0-45.0); HEMOGLOBIN 12.7 g/dl (12.0-16.0); LYMPHOCYTES # (AUTO) 2.5 X10'3 (1.1-4.8); MEAN CORPUSCULAR HEMOGLOBIN 28.3 PG (27.0-31.0); MEAN CORPUSCULAR HGB CONC 33.4 g/dL (33.0-36.5); MEAN CORPUSCULAR VOLUME 84.8 FL (78-98); MEAN PLATELET VOLUME 8.4 FL (7.4-10.4); MONOCYTES # (AUTO) 0.5 X10'3 (0-0.9); MONOCYTES % (AUTO) 5.7 % (2-12); NEUTROPHILS # (AUTO) 4.9 X10'3 (1.8-7.7); NEUTROPHILS % (AUTO) 59.3 % (42-75); PLATELET COUNT 280 X10'3 (140-440); RED CELL DISTRIBUTION WIDTH 14.1 % (11.5-14.5); WHITE BLOOD COUNT 8.2 X10'3 (4.5-11.0)
[2023-02-13 15:09] LABS: HCG SERUM QL NEGATIVE
[2023-02-13] MEDS ORDERED: HYDR-3973 PO (16:58)
[2023-02-13] MEDS ORDERED: MEDR5TAB PO (16:58)
== END 2023-02-13 17:11 | disposition home or self-care (01) ==
LOC: ER 11:28
DX: N92.0 Excessive and frequent menstruation with regular cycle (principal); M54.50 Low back pain, unspecified; J45.909 Unspecified asthma, uncomplicated; E03.9 Hypothyroidism, unspecified; Z87.442 Personal history of urinary calculi; Z90.49 Acquired absence of other specified parts of digestive tract; Z98.891 History of uterine scar from previous surgery; Z98.51 Tubal ligation status; Z88.5 Allergy status to narcotic agent; Z79.899 Other long term (current) drug therapy; Z88.8 Allergy status to other drugs, medicaments and biological substances
CPT/HCPCS: 36415; 84703; 85025; 99283; 99284

== ENCOUNTER 2023-04-08 12:57 | Emergency (ER) | payer MEDICAID ==
[~2023-04-08] VITALS: Ht 167.6 cm; Wt 117.0 kg
[~2023-04-08 12:57] MED LIST changes: +MEDR5TAB PO
[2023-04-08 13:32] VITALS: BP 120/79; PULSE 93; TEMP 98.2; O2SAT 95
[2023-04-08 14:33] LABS: BASOPHILS % (AUTO) 0.3 % (0-1); EOSINOPHILS # (AUTO) 0.4 X10'3 (0-0.9); EOSINOPHILS % (AUTO) 3.8 % (0-6); LYMPHOCYTES # (AUTO) 2.8 X10'3 (1.1-4.8); LYMPHOCYTES % (AUTO) 26.1 % (21-51); MEAN CORPUSCULAR HEMOGLOBIN 27.7 PG (27.0-31.0); MEAN CORPUSCULAR HGB CONC 33.2 g/dL (33.0-36.5); MEAN CORPUSCULAR VOLUME 83.2 FL (78-98); MEAN PLATELET VOLUME 8.3 FL (7.4-10.4); MONOCYTES # (AUTO) 0.5 X10'3 (0-0.9); MONOCYTES % (AUTO) 4.8 % (2-12); PLATELET COUNT 376 X10'3 (140-440); RED BLOOD COUNT 4.69 X10'6 (4.20-5.60); RED CELL DISTRIBUTION WIDTH 14.6 % (11.5-14.5); WHITE BLOOD COUNT 10.8 X10'3 (4.5-11.0)
[2023-04-08 14:40] LABS: URINE HCG NEGATIVE (NEG)
[2023-04-08 14:45] LABS: BILIRUBIN,URINE NEGATIVE (Neg); CLARITY,URINE SLIGHTLY CLOUDY (Clear); COLOR,URINE YELLOW (Yellow); GLUCOSE, URINE NEGATIVE (Neg); KETONES,URINE NEGATIVE (Neg); LEUKOCYTE ESTERASE ,URINE NEGATIVE (Neg); NITRITES, URINE NEGATIVE (Neg); OCCULT BLOOD,URINE NEGATIVE (Neg); PROTEIN,URINE NEGATIVE (Neg); UROBILINOGEN,URINE 0.2 E.U/dL (0.2-1.0)
[2023-04-08 14:46] LABS: UA COLLECTION TYPE CLN CATCH MIDSTREAM
[2023-04-08 14:54] LABS: ALANINE AMINOTRANSFERASE 18 U/L (12-78); ALKALINE PHOSPHATASE 104 IU/L (46-116); ANION GAP 10 (8-16); ASPARTATE AMINO TRANSFERASE 14 U/L (10-37); BILIRUBIN,TOTAL 0.3 MG/DL (0.1-1.0); BLOOD UREA NITROGEN 13 MG/DL (7-18); BUN/CREATININE RATIO 18.6 (10.0-20.0); CALCIUM 9.7 MG/DL (8.5-10.1); CHLORIDE 101 MMOL/L (99-107); GLUCOSE 92 MG/DL (70-104); LIPASE 431 U/L (73-393); POTASSIUM 3.9 MMOL/L (3.5-5.1); SODIUM 139 MMOL/L (135-145); TOTAL CARBON DIOXIDE 27.8 MMOL/L (24-32); TOTAL PROTEIN 7.9 G/DL (6.4-8.2); eCRCL 108 ML/MIN; eGFR > 90 ML/MIN
[2023-04-08 14:59] LABS: AMORPHOUS URATES 2+; BACTERIA,URINE 1+ /HPF (Neg); MUCUS STRANDS FEW /LPF (Neg); RBC,URINE NONE SEEN /HPF (0-2); SQUAMOUS EPITHELIAL CELL,UR MODERATE /LPF (FEW); WBC,URINE 0-4 /HPF (0-4)
[2023-04-08 15:17] VITALS: RESP 16
== END 2023-04-08 16:12 | disposition home or self-care (01) ==
LOC: ER 12:57
DX: M54.50 Low back pain, unspecified (principal); R11.2 Nausea with vomiting, unspecified; J45.909 Unspecified asthma, uncomplicated; E03.9 Hypothyroidism, unspecified; F41.9 Anxiety disorder, unspecified; Z90.49 Acquired absence of other specified parts of digestive tract; Z98.890 Other specified postprocedural states; Z98.51 Tubal ligation status; Z88.5 Allergy status to narcotic agent; Z88.8 Allergy status to other drugs, medicaments and biological substances; Z79.899 Other long term (current) drug therapy
CPT/HCPCS: 36415; 80053; 81001; 81025; 83690; 85025; 99283

== ENCOUNTER 2023-08-14 08:57 | Emergency (ER) | payer MEDICAID ==
[~2023-08-14] VITALS: Ht 167.6 cm; Wt 122.0 kg
[~2023-08-14 08:57] MED LIST changes: +ONDA4TAB12 PO
[2023-08-14 09:07] VITALS: BP 105/65; PULSE 89; RESP 18; TEMP 98; O2SAT 98
[2023-08-14] MEDS ORDERED: NIRM1TAB5 PO (12:13)
== END 2023-08-14 12:43 | disposition home or self-care (01) ==
LOC: ER 08:58
DX: U07.1 COVID-19 (principal); R19.7 Diarrhea, unspecified; J45.909 Unspecified asthma, uncomplicated; E03.9 Hypothyroidism, unspecified; Z90.49 Acquired absence of other specified parts of digestive tract; Z98.891 History of uterine scar from previous surgery; Z98.51 Tubal ligation status
CPT/HCPCS: 36415; 71045; 87502; 87503; 87811; 99284

== ENCOUNTER 2024-02-06 19:06 | Emergency (ER) | payer MEDICAID ==
[~2024-02-06] VITALS: Ht 167.6 cm; Wt 97.7 kg
[~2024-02-06 19:06] MED LIST changes: +NIRM1TAB5 PO; +RISP-31 PO; -RISP1TAB98 PO
[2024-02-06 19:10] VITALS: BP 119/69; PULSE 107; TEMP 98.7
[2024-02-06] MEDS ORDERED: ketorolac trometh. 30mg/ml inj. IM ONE (19:35)
[2024-02-06] MEDS ORDERED: SULF1TAB48 PO (19:42)
[2024-02-06 19:57] VITALS: RESP 16
[2024-02-06] MEDS: ketorolac tromethamine 15mg/ml inj. IM ONE (19:57)
== END 2024-02-06 20:04 | disposition home or self-care (01) ==
LOC: ER 19:06
DX: J86.9 Pyothorax without fistula (principal); J45.909 Unspecified asthma, uncomplicated; E03.9 Hypothyroidism, unspecified; Z98.51 Tubal ligation status; Z98.891 History of uterine scar from previous surgery; Z79.899 Other long term (current) drug therapy; Z88.5 Allergy status to narcotic agent; Z88.8 Allergy status to other drugs, medicaments and biological substances
CPT/HCPCS: 96372; 99283; J1885

== ENCOUNTER 2024-06-26 00:11 | Emergency (ER) | payer MEDICAID ==
[~2024-06-26] VITALS: Ht 167.6 cm; Wt 87.3 kg
[~2024-06-26 00:11] MED LIST changes: +ONDA-243 PO; -ONDA4TAB12 PO
[2024-06-26 00:14] VITALS: BP 101/64; PULSE 68; RESP 16; TEMP 97.2; O2SAT 98
[2024-06-26 01:10] LABS: BILIRUBIN,URINE NEGATIVE (Neg); CLARITY,URINE CLEAR (Clear); COLOR,URINE YELLOW (Yellow); GLUCOSE, URINE NEGATIVE (Neg); KETONES,URINE NEGATIVE (Neg); LEUKOCYTE ESTERASE ,URINE NEGATIVE (Neg); NITRITES, URINE NEGATIVE (Neg); OCCULT BLOOD,URINE NEGATIVE (Neg); PROTEIN,URINE NEGATIVE (Neg); UROBILINOGEN,URINE 0.2 E.U/dL (0.2-1.0)
[2024-06-26 01:25] LABS: UA COLLECTION TYPE NON-SPECIFIED
[2024-06-26 01:38] LABS: BASOPHILS % (AUTO) 0.5 % (0-1); EOSINOPHILS # (AUTO) 0.3 X10'3 (0-0.9); EOSINOPHILS % (AUTO) 4.1 % (0-6); HEMATOCRIT 36.4 % (35.0-45.0); HEMOGLOBIN 12.3 g/dl (12.0-16.0); LYMPHOCYTES # (AUTO) 3.2 X10'3 (1.1-4.8); LYMPHOCYTES % (AUTO) 43.6 % (21-51); MEAN CORPUSCULAR HEMOGLOBIN 30.5 PG (27.0-31.0); MEAN CORPUSCULAR HGB CONC 33.7 g/dL (33.0-36.5); MEAN CORPUSCULAR VOLUME 90.4 FL (78-98); MEAN PLATELET VOLUME 8.2 FL (7.4-10.4); MONOCYTES # (AUTO) 0.4 X10'3 (0-0.9); MONOCYTES % (AUTO) 5.4 % (2-12); NEUTROPHILS # (AUTO) 3.4 X10'3 (1.8-7.7); NEUTROPHILS % (AUTO) 46.4 % (42-75); PLATELET COUNT 270 X10'3 (140-440); RED BLOOD COUNT 4.02 X10'6 (4.20-5.60); RED CELL DISTRIBUTION WIDTH 13.2 % (11.5-14.5); WHITE BLOOD COUNT 7.4 X10'3 (4.5-11.0)
[2024-06-26 01:46] LABS: ALBUMIN 3.9 G/DL (3.4-5.0); ANION GAP 7 (8-16); BLOOD UREA NITROGEN 14 MG/DL (7-18); BUN/CREATININE RATIO 19.7 (10.0-20.0); CALCIUM 9.4 MG/DL (8.5-10.1); CHLORIDE 103 MMOL/L (99-107); CREATININE 0.71 MG/DL (0.40-0.90); GLUCOSE 86 MG/DL (70-104); LIPASE 35 U/L (16-77); POTASSIUM 3.7 MMOL/L (3.5-5.1); SODIUM 137 MMOL/L (135-145); TOTAL CARBON DIOXIDE 26.7 MMOL/L (24-32); eCRCL 106 ML/MIN; eGFR > 90 ML/MIN
== END 2024-06-26 03:14 | disposition left against medical advice (07) ==
LOC: ER 00:12
DX: R10.31 Right lower quadrant pain (principal); Z53.21 Procedure and treatment not carried out due to patient leaving prior to being seen by health care provider
CPT/HCPCS: 36415; 80048; 81003; 83690; 85025

== ENCOUNTER 2024-10-14 13:19 | Emergency (ER) | payer MEDICAID ==
[~2024-10-14] VITALS: Ht 167.6 cm; Wt 84.2 kg
[2024-10-14 13:26] VITALS: BP 139/96; PULSE 99; TEMP 97.8; O2SAT 97
[2024-10-14] MEDS ORDERED: IBUP-1986 PO (14:54)
[2024-10-14] MEDS ORDERED: AMOX875T10 PO (14:54)
[2024-10-14] MEDS ORDERED: ACET-1025 PO (14:54)
[2024-10-14 15:04] VITALS: RESP 18
[2024-10-14] MEDS: ketorolac trometh 30MG/ML vial 30 MG/ML VIAL IM STA (15:04)
== END 2024-10-14 15:11 | disposition home or self-care (01) ==
LOC: ER 13:19
DX: K04.7 Periapical abscess without sinus (principal); J45.909 Unspecified asthma, uncomplicated; E03.9 Hypothyroidism, unspecified; Z90.49 Acquired absence of other specified parts of digestive tract; Z98.51 Tubal ligation status; Z98.890 Other specified postprocedural states; Z88.5 Allergy status to narcotic agent; Z79.899 Other long term (current) drug therapy
CPT/HCPCS: 96372; 99283; J1885

== ENCOUNTER 2025-03-15 12:11 | Emergency (ER) | payer MEDICAID, SELFPAY ==
[~2025-03-15] VITALS: Ht 167.6 cm; Wt 86.3 kg
[~2025-03-15 12:11] MED LIST changes: -FERR-29 PO; +HYDR-3965 PO; +IBUP-1986 PO; +LAMO25TA4 PO; -MEDR5TAB PO; -NIRM1TAB5 PO; -ONDA-243 PO; +PALI3TAB PO; +PALI546S IM; -RISP-31 PO; +SYN0.088T PO
[2025-03-15 12:14] VITALS: BP 112/65; PULSE 66; RESP 16; TEMP 97; O2SAT 100
[2025-03-15] MEDS ORDERED: ALBU8HFA INH (12:56)
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
== END 2025-03-15 13:15 | disposition home or self-care (01) ==
LOC: ER 12:12
DX: Z00.8 Encounter for other general examination (principal); Z76.0 Encounter for issue of repeat prescription; Z87.891 Personal history of nicotine dependence; Z88.5 Allergy status to narcotic agent; Z90.49 Acquired absence of other specified parts of digestive tract; Z90.710 Acquired absence of both cervix and uterus
CPT/HCPCS: 99281

== ENCOUNTER 2025-05-07 08:22 | Emergency (ER) | payer MEDICAID ==
[~2025-05-07] VITALS: Ht 167.6 cm; Wt 84.1 kg
[~2025-05-07 08:22] MED LIST changes: -HYDR-3965 PO
[2025-05-07 08:42] VITALS: TEMP 96.8
--- NOTE | 2025-05-07 08:55 | Physician Documentation ---
History of Present Illness Chief Complaint: Abdominal Pain Stated Complaint: VOMITING [facility] 35-year-old female presents to the ED with two days of nausea vomiting diarrhea. She has abdominal pain in the right lower quadrant. That there are no a lleviating or exacerbating factors. Day of Onset: May 07, 2025 Medication Reconciliation Allergies: Coded Allergies: morphine (Verified Allergy, Unknown, RASH, 05/07/25) lorazepam (Verified Adverse Reaction, Unknown, BACKOUT RAGE, 05/07/25) "BLACKOUT" WITH IV ATIVAN Uncoded Allergies: CONTRAST DYE (Allergy, Unknown, RASH, 05/03/22) Scheduled Ibuprofen (Ibuprofen), 1 TAB PO Q8H Lamotrigine (Lamictal), 4 TAB PO HS, (Reported) Levothyroxine Sodium* (Synthroid*), 1 TAB PO DAILY, (Reported) Paliperidone (Invega), 1 TAB PO HS, (Reported) Paliperidone Palmitate (Invega Trinza), 546 MG IM [id number], (Reported) Scheduled PRN ONDANSETRON ODT 4mg tablet (Ondansetron Odt), 1 TAB PO Q6H PRN PRN for nausea/vomiting Past Medical History Past Medical History: No Pertinent History, Asthma, *RENAL/*, Kidney Stones, Hypothyroidism, Anxiety Past Surgical History: cholecystectomy, , hysterectomy, tonsillectomy, tubal ligation Other Past Surgical History: For C-sections, laser surgery for nephrolithiasis, gastric sleeve surgery Patient History: Patient reports no known family medical history. Alcohol Use: None Drug Use: none Lives with: Family Lives In: Home Occupation: employed Past Social History: Former cigarette smoker, now vaps for the past two years Review of Systems All Other Systems at this time: Reviewed and Negative ROS As stated above in the HPI, otherwise all systems are reviewed and negative. Physical Exam Vital Signs: Temperature: 96.8, Source: Temporal, Heart Rate: 66, Respiratory Rate: 18, BP: 154/64, Pulse Oximetry: 99, Weight: 55.900 Physical Exam General: Alert, no apparent distress. Chest: No accessory muscle use. Cardiovascular: Regular rate and rhythm, no murmurs. Gastrointestinal: RLQ Quadrant tenderness Extremities: Normal range of motion, no deformity. Neurologic: Oriented x4. Psychiatric: Normal mood and affect. Skin: Normal color, warm and dry. No edema, no ecchymosis. Progress Results/Orders Results/Orders Vital Signs 05/07/25 08:42 Temp 96.8 Pulse 66 Resp 18 B/P (MAP) 154/64 Pulse Ox 99 Medical Decision Making Findings Patient's laboratory values are overall unremarkable. Her complaint is in line with a viral gastroenteritis that we are seeing locally. I told her I could send her some Zofran to her pharmacy to help with nausea which she appreciated. I encouraged her to increase fluid intake to maintain hydration. Also instructed her of a close follow up if her symptoms persist or worsen. Differential Dx:Considerations: Include: AAA, -Complete, - Incomplete, -Inevitable, -Missed, -Threatened, Abruptio placentae, Angina/MA, Aortic dissection, Appendicitis, Bowel obstruction, Cholangitis, Cholelithasis, Constipation, Diverticular disease, Esophageal rupture, Esophagitis, Gastritis/PUD, Gastroenteritis, GI hemorrhage, Hernia, Hepatitis, Inflammatory BD, Ischemic bowel, Ovarian cyst/torsion, Pancreatitis, PID, Porphyria, Trauma, intraabdominal, Urinary obstruction, Urinary tract infection, Urolithiasis, Other Departure Disposition: 01 HOME / SELF CARE / HOMELESS Impression: Primary Impression: Viral gastroenteritis Condition: Stable Discharge Instructions: Viral Gastroenteritis, Adult Departure Forms: Excuse form Work or School Excused From: Work Excuse beginning now through the following date: May 09, 2025 May Return but still avoid physical Activity from now until: May 09, 2025 May Return to full physical activity as of: May 09, 2025 Referrals: NO PRIMARY CARE PROVIDER (PCP) Prescriptions ONDANSETRON ODT 4mg tablet (ONDANSETRON ODT) 4 Mg Tab.rapdis 1 TAB PO Q6H PRN PRN for nausea/vomiting for 4 Days, #16 TAB 0 Refills Prov: JOE CHOI NP 05/07/25 Signature Scribe Signature: f Attestation: Scribed for Joe Choi Licensed Nuclear Control Room Operator by Joe Mcnally NP . 05/07/25 11:38 JOE CHOI WORK OVER RIG OPERATOR May 07, 2025 08:55
[2025-05-07 09:37] LABS: MEAN PLATELET VOLUME 8.5 FL (7.4-10.4); RED CELL DISTRIBUTION WIDTH 13.0 % (11.5-14.5)
[2025-05-07 09:58] LABS: CREATININE 0.87 MG/DL (0.40-0.90); TOTAL CARBON DIOXIDE 29.0 MMOL/L (24-32); eCRCL 85 ML/MIN; eGFR 75 ML/MIN
[2025-05-07 10:43] LABS: URINE HCG NEGATIVE (NEG)
[2025-05-07 10:45] LABS: LEUKOCYTE ESTERASE ,URINE NEGATIVE (Neg); NITRITES, URINE NEGATIVE (Neg); OCCULT BLOOD,URINE NEGATIVE (Neg); UA COLLECTION TYPE CLN CATCH MIDSTREAM
[2025-05-07] MEDS ORDERED: ONDA-243 PO (11:38)
[2025-05-07 11:46] VITALS: BP 101/62; PULSE 62; RESP 15; O2SAT 100
== END 2025-05-07 11:47 | disposition home or self-care (01) ==
LOC: ER 08:22
DX: A08.4 Viral intestinal infection, unspecified (principal); F41.9 Anxiety disorder, unspecified; E03.9 Hypothyroidism, unspecified; Z90.49 Acquired absence of other specified parts of digestive tract; Z90.710 Acquired absence of both cervix and uterus; Z88.5 Allergy status to narcotic agent; Z87.442 Personal history of urinary calculi; Z79.899 Other long term (current) drug therapy
CPT/HCPCS: 36415; 80053; 81003; 81025; 83690; 85025; 99283